=== PATIENT | female | born 1955 | race Caucasian/White ===

== ENCOUNTER 2018-10-24 10:00 | Inpatient (IN) | payer OTHER, MEDICARE ==
[2018-10-19 13:07] VITALS: BMI 42.5
[2018-10-24] MEDS ORDERED: TRANEXAMIC ACID 1000 MG/10 ML VIAL IVPUSH ONE (12:44)
[2018-10-24] MEDS ORDERED: VANCOMYCIN 1,000 MG in DEXTROSE 5%-WATER - 250 ML IVPB ONE (12:44)
[2018-10-24] MEDS ORDERED: CEFAZOLIN 2 GM in DEXTROSE 5%-WATER - 50 ML IVPB ONE (12:44)
[2018-10-24] MEDS ORDERED: SODIUM CHLORIDE 0.9% P/F 10 ML VIAL IJ ONE (14:58)
[2018-10-24] MEDS ORDERED: MIDAZOLAM HCL 2 MG/2 ML SINGLE DOSE VIAL ONE ×2 (14:58→17:51)
[2018-10-24] MEDS ORDERED: BUPIVACAINE LIPOSOME/PF (EXPAREL) 266 MG/20 ML VIAL ONE (14:58)
[2018-10-24] MEDS ORDERED: BUPIVACAINE HCL/PF 0.5% (5MG/ML) 10 ML VIAL ONE (16:37)
[2018-10-24] MEDS ORDERED: ACETAMINOPHEN 1000 MG/100 ML VIAL (NON FORMULARY) IVPB ONE (17:34)
[2018-10-24] MEDS ORDERED: oxyCODONE HCL 5 MG TABLET PO PRN (17:34)
[2018-10-24] MEDS ORDERED: ONDANSETRON 4 MG/2 ML VIAL IVPUSH PRN ×2 (17:34→21:54)
[2018-10-24] MEDS ORDERED: LACTATED RINGERS SOLUTION 1,000 ML IV SCH ×2 (17:45→22:00)
[2018-10-24] MEDS ORDERED: PROPOFOL 20 ML ONE ×11 (18:11→21:01)
[2018-10-24] MEDS ORDERED: ceFAZolin SODIUM 1 GM VIAL ONE ×2 (18:19→20:55)
[2018-10-24] MEDS ORDERED: VANCOMYCIN 1,000 MG VIAL (RESTRICTED TO ID ONLY) ONE (18:20)
[2018-10-24] MEDS ORDERED: PHENYLEPHRINE HCL 10 MG/1 ML SINGLE DOSE VIAL ONE (18:37)
[2018-10-24] MEDS ORDERED: TRANEXAMIC ACID 1000 MG/10 ML VIAL ONE ×2 (18:37→20:33)
[2018-10-24] MEDS ORDERED: BENZOIN/ALOE VERA/STORAX/TOLU 58 ML BOTTLE ONE (19:35)
[2018-10-24] MEDS ORDERED: ACETAMINOPHEN 500 MG TABLET (FP) PO PRN (21:10)
--- NOTE | 2018-10-24 21:12 | CONSULT ---
Consult Consult Specialty:: Hospitalist Referred by:: Dr Rona Reynolds Reason for Consultation:: Post Operative medical management - History of Present Illness Chief Complaint: Left total knee replacement History of Present Illness: 63 yrs old F morbidly obese H/O HTN, Depression anxiety, admitted for elective Left TKR for sever OA, Hospitalist consult is called post Operate medical management, at the time of examination c/o Left Hip Pain 11/19, denies any chest pain , SOB or Palpitation, no c/o nuasea, vomiting , abdominal distention , no H/O Dysuria or CVA tenderness. - History Source History Provided By: Patient - Past Medical History Cardio/Vascular: Yes: HTN - Past Surgical History Past Surgical History: Yes: Joint Replacement Additional Surgical History: C section - Alcohol/Substance Use Hx Alcohol Use: No - Smoking History Smoking history: Former smoker Have you smoked in the past 12 months: No If you are a former smoker, when did you quit?: 1980 - Social History Usual Living Arrangement: With Spouse Home Medications - Allergies Allergies/Adverse Reactions: Allergies Allergy/AdvReac Type Severity Reaction Status Date / Time No Known Allergies Allergy Verified 10/19/18 12:53 - Home Medications Home Medications: Ambulatory Orders Acetaminophen [Tylenol Extra Strength] 1,000 mg PO Q6H PRN 10/19/18 Amlodipine Besylate [Norvasc -] 5 mg PO DAILY 10/19/18 Buspirone HCl [Buspar -] 15 mg PO BID 10/19/18 Lisinopril 20 mg PO DAILY 10/19/18 Venlafaxine HCl ER [Effexor Xr -] 150 mg PO DAILY 10/19/18 Family Disease History - Family Disease History Family History: Unremarkable Review of Systems - Review of Systems Constitutional: denies: Chills, Diaphoresis, Fever, Lethargy Eyes: denies: Blind Spots, Blurred Vision, Double Vision HENT: denies: Difficult Swallowing, Ear Discharge, Ear Pain Neck: denies: Decreased ROM, Lumps, Pain on Movement Cardiovascular: denies: Chest Pain, Edema, Palpitations, Shortness of Breath Respiratory: denies: Cough, Exercise Intolerance, Hemoptysis, Orthopnea Gastrointestinal: denies: Abdominal Pain, Bloating, Constipation Genitourinary: denies: Burning, Discharge, Dysuria, Flank Pain Musculoskeletal: reports: Joint Pain (left Knee), Joint Swelling Neurological: denies: Change in LOC, Change in Speech, Confusion, Dizziness Hematology/Lymphatic: denies: Easily Bruised, Excessive Bleeding Psychiatric: reports: Anxiety, Depression. denies: Altered Sleep Pattern Physical Exam Vital Signs: Vital Signs Temperature 98.4 F 10/24/18 13:24 Pulse Rate 68 10/24/18 13:24 Respiratory Rate 18 10/24/18 13:24 Blood Pressure 153/79 10/24/18 13:24 O2 Sat by Pulse Oximetry (%) Elderly F not in distress c/o Left knee Pain HEENT: Mm moist, no anemia, PERRLA, EOMI NECK: No JVD, No Bruit CHEST: CTA B/L CVS: S1S2 R no m/g/r ABD: Obese, no distention, non tender BS + EXT: left knee s/p TKR, + distal pulses and sensation TRUST ADMINISTRATIVE ASSISTANT: AOX3 non focal Labs: 10/17/2018 CBC: not avialable CMP: Normal UA: Normal Coags: Normal Imaging - Results X-ray: Report Reviewed (CXR normal 10/17/2018) EKG: Report Reviewed Problem List - Problems (1) Total knee replacement status Assessment/Plan: For sever OA, c/o pain , pain control, post Op management as per ortho team. Code(s): Z96.659 - PRESENCE OF UNSPECIFIED ARTIFICIAL KNEE JOINT (2) HTN (hypertension) Assessment/Plan: mild elevation probably due to pain resume all home meds re evaluate after optimization of pain management. Code(s): I10 - ESSENTIAL (PRIMARY) HYPERTENSION (3) Anxiety Assessment/Plan: Known case of Anxiety and depression resume all home meds. Code(s): F41.9 - ANXIETY DISORDER, UNSPECIFIED (4) Morbid obesity Code(s): E66.01 - MORBID (SEVERE) OBESITY DUE TO EXCESS CALORIES Visit type - Emergency Visit Emergency Visit: No - New Patient This patient is new to me today: Yes Date on this admission: 10/24/18 - Critical Care Critical Care patient: No
[2018-10-24] MEDS ORDERED: MAGNESIUM HYDROX 2400MG/30ML ORAL SUSPENSION 30 ML CUP PO PRN (21:54)
[2018-10-24] MEDS ORDERED: MAG HYDROX/AL HYDROX/SIMETH 30 ML UNIT-DOSE CUP PO PRN (21:54)
--- NOTE | 2018-10-24 21:59 | PN ---
Progress Note (short form) - Note Progress Note: 63F s/p LEFT total knee replacement POD #0. -Pain control. -DVT PPx: -Chemical: ASA 81mg PO BID x 6 weeks post-op. -Mechanical: CAPRICE's, SCD's. -Incentive spirometry q15 min. -PT/OT/Rehab, OOB. -WBAT RLE. -Post-op Ancef x 2 doses. -f/u post-op TOV: 8 hours max. -f/u AM labs. -f/u drain output. -Diet as tolerated. -Care per medical hospitalist team. -Discharge planning: f/u [facility] [place] [facility] 11/01/2018; call for appointment . -Will follow. Rodolfo Rea MD (Orthopaedic Surgery).
[2018-10-24] MEDS ORDERED: ASPIRIN 325 MG TABLET PO SCH (22:00)
--- NOTE | 2018-10-24 22:01 | OP ---
Operative Note - Note: Operative Date: 10/24/18 Pre-Operative Diagnosis: Left knee DJD Operation: Left TKA Findings: Tourniquet Pressure: 350mmHg Tourniquet Time: 137 minutes Implants: Rosa Triathlon. Femur - 3. Tibia - 2. Poly - 16mm, TS. Patella - 27mm, symmetric Surgeon: Rodolfo Rea Cafe Server: Rupert Rea Anesthesiologist/[employer]: Charanjit Hooper Anesthesia: Spinal Specimens Removed: Bone, soft tissue Estimated Blood Loss (mls): 0 Drains & Tubes with Location: 1 x deep HemoVac Fluid Volume Replaced (mls): 1,000 (Crystalloid) Operative Report Dictated: Yes
[2018-10-24] MEDS: KETOROLAC TROMETHAMINE 15 MG/ML VIAL IVPUSH PRN (22:10)
[2018-10-24] MEDS: oxyCODONE HCL 10 MG SUSTAINED ACTING TABLET PO SCH (23:10)
[2018-10-25] MEDS: SENNOSIDES/DOCUSATE COMBO (SENNA PLUS) TABLET (UD) PO SCH ×3 (00:04→21:40)
[2018-10-25] MEDS: busPIRone HCL 5 MG TABLET PO SCH ×3 (00:04→21:39)
[2018-10-25] MEDS: oxyCODONE HCL 5 MG TABLET PO PRN ×6 (00:13→20:28)
[2018-10-25] MEDS: ASPIRIN 81 MG CHEWABLE TABLETS PO SCH ×3 (00:34→21:40)
[2018-10-25] MEDS: CEFAZOLIN 1 GM/D5W 1 GM/50 ML BAG IVPB SCH ×2 (04:10→12:50)
--- NOTE | 2018-10-25 06:50 | OP ---
DATE OF OPERATION: 10/24/2018 SURGEON: Rodolfo Rea MD ASSISTANTS: Rupert Rea MD, BOSSMAN Aparicio PREOPERATIVE DIAGNOSIS: Left tricompartmental osteoarthritis, knee. POSTOPERATIVE DIAGNOSIS: Left tricompartmental osteoarthritis, knee. OPERATION PERFORMED: Posterior stabilized total knee arthroplasty cemented, Rosa. Subvastus approach utilized. ANESTHESIA: Spinal anesthesia with peripheral nerve block and conscious sedation. ANTIBIOTICS GIVEN: Kefzol 2 g, vancomycin 1 g, and Kefzol 1 g given at the end of the procedure. OPERATION IN DETAIL: The patient was correctly identified and brought in the operating room. The left lower extremity was prepped and draped in the routine manner with Betadine scrub solution, wiped with alcohol, DuraPrep was applied, free drape applied. Midline incision was utilized. Dissection was taken on the medial aspect of the proximal tibia, skirting around to the medial side 1 inch distal along the border of vastus medialis. The entire vastus medialis was dissected free of its epimysium superficially right down to the linear aspect and the medial aspect to the adductor hiatus for the exiting femoral artery. The patella was slid laterally and held out of harms way. Two towel clips at the dissection enabled full exposure of the knee. The Hoffa fat pad was excised. The transection of the cruciate ligaments performed. Once this had been performed, the tibia was subluxed laterally. The tibial cut was made with extramedullary jig alignment system of [place]. A 3- mm cut of bone was resected perpendicular to the shaft of the tibia. The femoral cut was made with the appropriate jig system. The joint line was approximated 2 mm. The jig cuts were made with the appropriate jig device. This brought about easy fitting of the femoral component. The femoral component measured size 3 for a Triathlon femur base femur, and the universal baseplate for the tibia measured size 2. The patella was cut using an oscillating saw in line with the quadricepts tendon and patellar ligament to receive a size 27-mm polyethylene button. The jig cuts were made revealing normal alignment of the limb. A flexion gap extension gap was even at 16 mm. Once all the jig cuts had been made, cementing using one stage tibia followed by femur followed by patella, all extraneous cement was removed once it had cured. The size 16-mm TS component polyethylene was inserted. The wounds were thoroughly lavaged. The closure was as follows: Fascia along the retinacular tissues 1 Vicryl, subcutaneous 1 and 2-0 Vicryl, skin Steri-Strips. A light bandage applied. Operation went well. No complications. Kefzol 1 g given at the end of the procedure. Postoperative x-rays were taken. MD MITCH Castro/[id number] MTDD
[2018-10-25 08:36] LABS: BASO % 0.5 % (0-2.0); EOS % 2.8 % (0-4.5); HEMATOCRIT 34.2 % (32.4-45.2); HEMOGLOBIN 11.2 GM/dl (10.7-15.3); LYMPH % 12.3 % (8-40); MCH 30.6 pg (25.7-33.7); MCHC 32.8 g/dl (32.0-36.0); MEAN CELL VOLUME 93.4 fl (80-96); MEAN PLT VOLUME 10.2 fl (7.5-11.1); MONO % 7.9 % (3.8-10.2); NEUT % 76.5 % (42.8-82.8); PLATELET COUNT 198 K/MM3 (134-434); RBC 3.66 M/mm3 (3.60-5.2); WHITE BLOOD COUNT 9.7 K/mm3 (4.0-10.8)
[2018-10-25 08:42] LABS: CALCIUM 8.7 mg/dl (8.5-10); CREATININE 0.8 mg/dl (0.55-1.3); POTASSIUM 4.3 mmol/L (3.5-5.1)
[2018-10-25] MEDS: amLODIPine BESYLATE 5 MG TABLET (FP) PO SCH (09:40)
[2018-10-25] MEDS: VENLAFAXINE HCL 75 MG E.R. CAPSULES (FP) PO SCH (09:40)
[2018-10-25] MEDS: PANTOPRAZOLE 40 MG TABLET (FP) PO SCH (09:40)
[2018-10-25] MEDS: LISINOPRIL 20 MG TABLET (FP) PO SCH (09:41)
[2018-10-25] MEDS: oxyCODONE HCL 10 MG SUSTAINED ACTING TABLET PO SCH ×2 (09:41→21:40)
[2018-10-25] MEDS ORDERED: VENLAFAXINE HCL 150 MG E.R. CAPSULE PO SCH (10:00)
--- NOTE | 2018-10-25 10:22 | PN ---
Progress Note (short form) - Note Progress Note: pod#1 pt with complaints of pain this am. She is oob to chair today. NO nausea or emesis. No CP or SOB. Vital Signs Period Temp Pulse Resp BP Sys/Sheth Pulse Ox Last 24 Hr 97.6 F-98.4 F 57-74 14-18 100-153/42-88 100-100 LAW: non-bloody, 60 ml GEN: A&0x3, NAD CV: RRR Lungs: CTA b/ anteriorly Left leg: dressing c/d/i. LE: rayo/scds in place. 5/5 dorsi/plantar/flexion b/l. Able to raise left quad passively without difficulty. No calf tenderness or swelling noted b/l. CBC, BMP 05/16/19 07:10 05/16/19 07:10 A/p: 63 yo female s/p L total knee replacement, POD#1 diet as tolerated dvt ppx with rayo/scds/ambulate/PT/aspirin 81 mg BID pain managment with oral narcotics, resummed gabapentin 300 mg TID D/w Dr. Rea
[2018-10-25] MEDS: ACETAMINOPHEN 650 MG/20.3 ML ORAL SOLUTION (CUPS) PO SCH ×3 (11:49→22:06)
[2018-10-25] MEDS ORDERED: GABAPENTIN 300 MG CAPSULE (FP) PO SCH (14:00)
--- NOTE | 2018-10-25 16:46 | PN ---
Progress Note (short form) - Note Progress Note: 63F POD1 s/p L TKR under spinal anesthetic with PNBs. Pt states that pain is well controlled and reports no anesthetic complications. AVSS. Continue current regimen.
[2018-10-25] MEDS: GABAPENTIN 300 MG CAPSULE (FP) PO SCH (21:38)
[2018-10-26] MEDS: oxyCODONE HCL 5 MG TABLET PO PRN ×4 (01:21→18:04)
[2018-10-26] MEDS: ACETAMINOPHEN 650 MG/20.3 ML ORAL SOLUTION (CUPS) PO SCH (06:20)
[2018-10-26] MEDS: GABAPENTIN 300 MG CAPSULE (FP) PO SCH ×3 (06:21→21:38)
[2018-10-26] MEDS ORDERED: SUMAtriptan SUCCINATE 50 MG TABLET PO ONE (08:00)
[2018-10-26 08:08] LABS: HEMATOCRIT 32.3 % (32.4-45.2); HEMOGLOBIN 10.6 GM/dl (10.7-15.3); MCH 30.7 pg (25.7-33.7); MCHC 32.8 g/dl (32.0-36.0); MEAN CELL VOLUME 93.6 fl (80-96); MEAN PLT VOLUME 10.3 fl (7.5-11.1); PLATELET COUNT 195 K/MM3 (134-434); RBC 3.45 M/mm3 (3.60-5.2); RDW 15.7 % (11.6-15.6); WHITE BLOOD COUNT 10.6 K/mm3 (4.0-10.8)
--- NOTE | 2018-10-26 09:06 | PN ---
Progress Note (short form) - Note Progress Note: POD#2 Pt states that she has a migraine this am. Slight nausea. OOB and ambulating, complains of pain where her drain is. Vital Signs Period Temp Pulse Resp BP Sys/Sheth Pulse Ox Last 24 Hr 98.2 F-99.6 F 75-85 18-18 91-118/45-67 93-95 LAW: blood tinged 190 outpt since yesterday GEN: A&0x3 NAD CV: RRR Lungs: CTA b/l Left knee: drain removed this am with the tip intact. Surgical dressing c/d/i. Reapplied SURY wrap. No calf tenderness or swelling noted b/l. Replaced CAPRICE stocking with larger pair. CBC, BMP 10/26/ 07:26 10/25/18 07:10 A/P: 63 yo female s/p Left knee replacement Drain removed today Continue PT/plan for dishcarge to [place] versus Home with services today Diet as tolerated Continue aspirin 81mg BID D/w Dr. Rea
[2018-10-26] MEDS: ASPIRIN 81 MG CHEWABLE TABLETS PO SCH ×2 (09:52→21:38)
[2018-10-26] MEDS: SENNOSIDES/DOCUSATE COMBO (SENNA PLUS) TABLET (UD) PO SCH ×2 (09:52→21:37)
[2018-10-26] MEDS: busPIRone HCL 5 MG TABLET PO SCH ×2 (09:52→21:37)
[2018-10-26] MEDS: VENLAFAXINE HCL 75 MG E.R. CAPSULES (FP) PO SCH (09:52)
[2018-10-26] MEDS: PANTOPRAZOLE 40 MG TABLET (FP) PO SCH (09:53)
[2018-10-26] MEDS: LISINOPRIL 20 MG TABLET (FP) PO SCH (09:53)
[2018-10-26] MEDS: amLODIPine BESYLATE 5 MG TABLET (FP) PO SCH (09:53)
[2018-10-26] MEDS: oxyCODONE HCL 10 MG SUSTAINED ACTING TABLET PO SCH ×3 (09:53→21:38)
[2018-10-26] MEDS: KETOROLAC TROMETHAMINE 15 MG/ML VIAL IVPUSH PRN (13:43)
--- NOTE | 2018-10-26 15:33 | PATH ---
Surgical Pathology Report Patient Name: ALLISON ANGUIANO Med. Rec. #: [id number] /Age/Gender: 1955 (Age: 63) / F Account: [id number] Location: [facility] MED-SURG Taken: 10/24/2018 Received: 10/24/2018 Reported: 10/26/2018 Physicians: Rodolfo Rea M.D. Specimen(s) Received LEFT KNEE BONE Clinical History Primary osteoarthritis, left knee Final Diagnosis KNEE BONE, LEFT, TOTAL KNEE REPLACEMENT: DEGENERATIVE JOINT DISEASE. Electronically Signed Katy Blair M.D. Gross Description Received in formalin, labeled "left knee bone" is a 12.5 x 10.5 x 2.5 cm aggregate of cartilage-capped bone and fibroadipose tissue. The articular/condylar surfaces appear granular and show areas of eburnation. Public Records Researcher sections are submitted in one cassette after decalcification.
--- NOTE | 2018-10-26 18:02 | PN ---
Physical Exam: SUBJECTIVE: Patient seen and examined oob to chair. OBJECTIVE: Vital Signs Period Temp Pulse Resp BP Sys/Sheth Pulse Ox Last 24 Hr 98.2 F-98.7 F 75-85 18-18 105-118/45-67 95-96 GENERAL: The patient is awake, alert, and fully oriented, in no acute distress. LUNGS: Breath sounds equal, clear to auscultation bilaterally, no wheezes, no crackles, no accessory muscle use. HEART: Regular rate and rhythm, S1, S2 ABDOMEN: Soft, nontender, nondistended LLE: Knee immobilizer in placem 2+ DP pulses, foot warm, well-perfused NEUROLOGICAL: Cranial nerves II through XII grossly intact. Normal speech, gait not observed. Laboratory Results - last 24 hr 10/26/18 07:26 WBC 10.6 RBC 3.45 L Hgb 10.6 L Hct 32.3 L MCV 93.6 MCH 30.7 MCHC 32.8 RDW 15.7 H Plt Count 195 MPV 10.3 Active Medications Generic Name Dose Route Start Last Admin Trade Name Freq PRN Reason Stop Dose Admin Al Hydroxide/Mg Hydroxide 30 ml 10/24/18 21:54 Mylanta Oral Suspension - PO Q4H PRN DYSPEPSIA Amlodipine Besylate 5 mg 10/25/18 10:00 10/26/18 09:53 Norvasc - PO 5 mg DAILY ZOHREH Administration Aspirin 81 mg 10/24/18 23:45 10/26/18 09:52 Asa - PO 81 mg BID ZOHREH Administration Buspirone HCl 15 mg 10/24/18 22:00 10/26/18 09:52 Buspar - PO 15 mg BID ZOHREH Administration Gabapentin 300 mg 10/25/18 22:00 10/26/18 13:43 Neurontin - PO 300 mg TID ZOHREH Administration Ketorolac Tromethamine 15 mg 10/24/18 22:07 10/26/18 13:43 Toradol Injection - IVPUSH 15 mg Q6H PRN Administration PAIN LEVEL 6-10 Lisinopril 20 mg 10/25/18 10:00 10/26/18 09:53 Prinivil PO 20 mg DAILY ZOHREH Administration Magnesium Hydroxide 30 ml 10/24/18 21:54 Milk Of Magnesia - PO PRN PRN CONSTIPATION Ondansetron HCl 4 mg 10/24/18 17:34 Zofran Injection IVPUSH Q6H PRN NAUSEA AND/OR VOMITING Ondansetron HCl 4 mg 10/24/18 21:54 10/24/18 22:00 Zofran Injection IVPUSH 4 mg Q6H PRN Administration NAUSEA Oxycodone HCl 5 mg 10/24/18 17:34 Roxicodone - PO Q3H PRN PAIN LEVEL 1-5 Oxycodone HCl 10 mg 10/24/18 17:34 10/26/18 12:37 Roxicodone - PO 10 mg Q3H PRN Administration PAIN LEVEL 6-10 Oxycodone HCl 10 mg 10/24/18 22:00 10/26/18 12:41 Oxycontin - PO 10/27/18 17:35 Not Given BID ZOHREH Pantoprazole Sodium 40 mg 10/25/18 10:00 10/26/18 09:53 Protonix - PO 40 mg DAILY ZOHREH Administration Senna/Docusate Sodium 1 tablet 10/24/18 22:00 10/26/18 09:52 Pericolace - PO 1 tablet BID ZOHREH Administration Venlafaxine HCl 150 mg 10/25/18 10:00 10/26/18 09:52 Effexor Xr - PO 150 mg DAILY ZOHREH Administration ASSESSMENT/PLAN 63 year-old female with a PMH significant for HTN, depression/anxiety, and OA s/ p left total knee arthroplasty on 10/24/[address] Rodolfo Rea. Left total knee arthroplasty --POD #2 --perioperative antibiotics per surgery --pain management per surgery --ASA 81mg BID --protonix --bowel regimen --incentive spirometry Hypertension --BP stable --continue amlodipine, lisinopril Depression/anxiety --continue Effexor, Buspar FEN Fluids: PO intake adequate Electrolytes: replete as indicated Nutrition: regular diet DVT prophylaxis: OOB, ambulation, SCDs, TEDs, ASA 81mg BID Physical therapy Dispo: continues to require inpatient care. Full code. Visit type - Emergency Visit Emergency Visit: No - New Patient This patient is new to me today: No - Critical Care Critical Care patient: No
[2018-10-27] MEDS: oxyCODONE HCL 5 MG TABLET PO PRN ×2 (01:04→07:03)
[2018-10-27] MEDS: KETOROLAC TROMETHAMINE 15 MG/ML VIAL IVPUSH PRN (03:33)
[2018-10-27] MEDS: GABAPENTIN 300 MG CAPSULE (FP) PO SCH (07:03)
--- NOTE | 2018-10-27 09:45 | PN ---
Progress Note (short form) - Note Progress Note: POD#3 Doing remarkably well. Mobilizing Bandage dry No NVD PLAN D/c to rehab see in office 10 days DVTprophylaxis
[2018-10-27] MEDS: LISINOPRIL 20 MG TABLET (FP) PO SCH (09:56)
[2018-10-27] MEDS: oxyCODONE HCL 10 MG SUSTAINED ACTING TABLET PO SCH (09:57)
[2018-10-27] MEDS: busPIRone HCL 5 MG TABLET PO SCH (09:57)
[2018-10-27] MEDS: VENLAFAXINE HCL 75 MG E.R. CAPSULES (FP) PO SCH (09:57)
[2018-10-27] MEDS: amLODIPine BESYLATE 5 MG TABLET (FP) PO SCH (09:58)
[2018-10-27] MEDS: ASPIRIN 81 MG CHEWABLE TABLETS PO SCH (09:58)
[2018-10-27] MEDS: SENNOSIDES/DOCUSATE COMBO (SENNA PLUS) TABLET (UD) PO SCH (10:00)
[2018-10-27] MEDS: PANTOPRAZOLE 40 MG TABLET (FP) PO SCH (12:15)
[2018-10-27 13:21] VITALS: BP 99/49; PULSE 80; TEMP 99
--- NOTE | 2018-10-29 15:36 | PN ---
Physical Exam: SUBJECTIVE: Patient seen and examined oob to chair. OBJECTIVE: Vital Signs Period Temp Pulse Resp BP Sys/Sheth Pulse Ox Last 24 Hr 98.2 F-98.7 F 75-85 18-18 105-118/45-67 95-96 GENERAL: The patient is awake, alert, and fully oriented, in no acute distress. LUNGS: Breath sounds equal, clear to auscultation bilaterally, no wheezes, no crackles, no accessory muscle use. HEART: Regular rate and rhythm, S1, S2 ABDOMEN: Soft, nontender, nondistended LLE: Knee immobilizer in placem 2+ DP pulses, foot warm, well-perfused NEUROLOGICAL: Cranial nerves II through XII grossly intact. Normal speech, gait not observed. Laboratory Results - last 24 hr 10/26/18 07:26 WBC 10.6 RBC 3.45 L Hgb 10.6 L Hct 32.3 L MCV 93.6 MCH 30.7 MCHC 32.8 RDW 15.7 H Plt Count 195 MPV 10.3 Active Medications Generic Name Dose Route Start Trade Name Freq PRN Reason Stop Al Hydroxide/Mg Hydroxide 30 ml 10/24/18 21:54 Mylanta Oral Suspension - PO Q4H PRN DYSPEPSIA Amlodipine Besylate 5 mg 10/25/18 10:00 Norvasc - PO DAILY [facility] Aspirin 81 mg 10/24/18 23:45 Asa - PO BID [facility] Buspirone HCl 15 mg 10/24/18 22:00 Buspar - PO BID [facility] Gabapentin 300 mg 10/25/18 22:00 Neurontin - PO TID [facility] Ketorolac Tromethamine 15 mg 10/24/18 22:07 Toradol Injection - IVPUSH Q6H PRN PAIN LEVEL 6-10 Lisinopril 20 mg 10/25/18 10:00 Prinivil PO DAILY [facility] Magnesium Hydroxide 30 ml 10/24/18 21:54 Milk Of Magnesia - PO PRN PRN CONSTIPATION Ondansetron HCl 4 mg 10/24/18 17:34 Zofran Injection IVPUSH Q6H PRN NAUSEA AND/OR VOMITING Ondansetron HCl 4 mg 10/24/18 21:54 Zofran Injection IVPUSH Q6H PRN NAUSEA Oxycodone HCl 5 mg 10/24/18 17:34 Roxicodone - PO Q3H PRN PAIN LEVEL 1-5 Oxycodone HCl 10 mg 10/24/18 17:34 Roxicodone - PO Q3H PRN PAIN LEVEL 6-10 Oxycodone HCl 10 mg 10/24/18 22:00 Oxycontin - PO 10/27/18 17:35 BID [facility] Pantoprazole Sodium 40 mg 10/25/18 10:00 Protonix - PO DAILY [facility] Senna/Docusate Sodium 1 tablet 10/24/18 22:00 Pericolace - PO BID [facility] Venlafaxine HCl 150 mg 10/25/18 10:00 Effexor Xr - PO DAILY [facility] ASSESSMENT/PLAN 63 year-old female with a PMH significant for HTN, depression/anxiety, and OA s/ p left total knee arthroplasty on 10/24/[address] Rodolfo Rea. Left total knee arthroplasty --POD #1 --perioperative antibiotics per surgery --pain management per surgery --ASA 81mg BID --protonix --bowel regimen --incentive spirometry Hypertension --BP stable --continue amlodipine, lisinopril Depression/anxiety --continue Effexor, Buspar FEN Fluids: PO intake adequate Electrolytes: replete as indicated Nutrition: regular diet DVT prophylaxis: OOB, ambulation, SCDs, TEDs, ASA 81mg BID Physical therapy Dispo: continues to require inpatient care. Full code. Visit type - Emergency Visit Emergency Visit: No - New Patient This patient is new to me today: Yes Date on this admission: 10/29/18 - Critical Care Critical Care patient: No
== END 2018-10-27 11:00 | DRG 470 ==
LOC: FM/S 12:19
PROVIDERS: ADMIT Orthopaedic Surgery Orthopaedic Surgery of the Spine; ATTEND Orthopaedic Surgery Orthopaedic Surgery of the Spine
PROC: 0SRD0J9 Replacement of Left Knee Joint with Synthetic Substitute, Cemented, Open Approach (ICD-10-PCS; principal; 2018-10-24 18:56)
DX: M17.12 Unilateral primary osteoarthritis, left knee (principal); Z68.41 Body mass index [BMI] 40.0-44.9, adult; E66.01 Morbid (severe) obesity due to excess calories; I10 Essential (primary) hypertension; F41.9 Anxiety disorder, unspecified; Z87.891 Personal history of nicotine dependence; F32.9 Major depressive disorder, single episode, unspecified
CPT/HCPCS: 36415; 73560-TC-LT-FY; 80048; 85025; 85027; 88304-TC; 88311-TC; 97116-GP; 97163-GP; J0131

== ENCOUNTER 2018-11-11 11:30 | Inpatient (IN) | payer OTHER, MEDICARE ==
--- NOTE | 2018-11-12 01:22 | HP ---
CHIEF COMPLAINT: L knee repair PCP: Dr. Guillermo Bruner HISTORY OF PRESENT ILLNESS: 63 year-old female with a PMH significant for HTN, depression/anxiety, and OA s/ p left total knee arthroplasty on 10/24/[address] Rodolfo Rae, was transferred from [facility] by the request of Dr. Rea for evaluation of her L Knee pain. Patient noticed drainage, redness, and erythema from her L knee at the site [place] She admits to persistent pain since surgery. She said she had a follow up on November 01 but she showed no signs of infection. Dr. Rea was contacted today and requested for possible surgical intervention in the morning. Labs, cultures and imaging were taken at [facility]. She was given Vanc, Zosyn. She denies symptoms including fevers, chills, nausea, vomiting, chills, chest pain, headache, dizziness, sob, urinary changes. Recent Travel: denies PAST MEDICAL HISTORY: per HPI PAST SURGICAL HISTORY: arthoplasty 10/24 Social History: Smoking: denies. said she quit 40 years ago Alcohol: denies Drugs: denies Allergies No Known Allergies Allergy (Verified 10/19/18 12:53) HOME MEDICATIONS: Home Medications Medication Instructions Recorded Amlodipine Besylate [Norvasc -] 5 mg PO DAILY 10/19/18 Buspirone HCl [Buspar -] 15 mg PO BID 10/19/18 Lisinopril 20 mg PO DAILY 10/19/18 Venlafaxine HCl ER [Effexor Xr -] 150 mg PO DAILY 10/19/18 Gabapentin 300 mg PO TID 10/25/18 Acetaminophen [Tylenol Extra 1,000 mg PO Q8H PRN #0 tab 10/26/18 Strength] Aspirin [ASA -] 81 mg PO BID #90 tab.chew 10/26/18 Docusate Sodium [Colace -] 100 mg PO BID #28 capsule 10/26/18 Gabapentin [Neurontin -] 300 mg PO TID capsule 10/26/18 REVIEW OF SYSTEMS CONSTITUTIONAL: Absent: fever, chills, diaphoresis, generalized weakness, malaise, loss of appetite, weight change HEENT: Absent: rhinorrhea, nasal congestion, throat pain, throat swelling, difficulty swallowing, mouth swelling, ear pain, eye pain, visual changes CARDIOVASCULAR: Absent: chest pain, syncope, palpitations, irregular heart rate, lightheadedness , peripheral edema RESPIRATORY: Absent: cough, shortness of breath, dyspnea with exertion, orthopnea, wheezing, stridor, hemoptysis GASTROINTESTINAL: Absent: abdominal pain, abdominal distension, nausea, vomiting, diarrhea, constipation, melena, hematochezia GENITOURINARY: Absent: dysuria, frequency, urgency, hesitancy, hematuria, flank pain, genital pain MUSCULOSKELETAL: Absent: myalgia, arthralgia, joint swelling, back pain, neck pain NEUROLOGIC: Absent: headache, focal weakness or paresthesias, dizziness, unsteady gait, seizure, mental status changes, bladder or bowel incontinence PSYCHIATRIC: Absent: anxiety, depression, suicidal or homicidal ideation, hallucinations. PHYSICAL EXAMINATION GENERAL: Awake, alert, and fully oriented, in no acute distress. HEAD: Normal with no signs of trauma. EYES: Pupils equal, round and reactive to light, extraocular movements intact, sclera anicteric, conjunctiva clear. EARS, NOSE, THROAT: oropharynx clear without exudates. Moist mucous membranes. NECK: supple without lymphadenopathy, JVD, or masses. LUNGS: Breath sounds equal, clear to auscultation bilaterally. No wheezes, and no crackles. HEART: Regular rate and rhythm, normal S1 and S2 without murmur, rub or gallop. ABDOMEN: Soft, nontender, not distended, normoactive bowel sounds, no guarding, no rebound, no masses. No hepatomegaly or splenomegaly. MUSCULOSKELETAL: Normal range of motion at all joints. No bony deformities or tenderness. LOWER EXTREMITIES: 2+ pulses, L Knee erythematous, swollen, warm to touch, with serosanguinous and purulent discharge @ incision site. NEUROLOGICAL: Cranial nerves II-XII intact. Normal speech. ASSESSMENT/PLAN: 63 year-old female with a PMH significant for HTN, depression/anxiety, and OA s/ p left total knee arthroplasty on 10/24/[address] Rodolfo Rea, was transferred from [facility] by the request of Dr. Rea for evaluation of her L Knee pain #Septic Joint L Knee -2/2 surgical wound infection from L TKR -s/p left total knee arthroplasty on 10/24/18 -Labs in AM: CBC, CMP -Morphine 2mg q4h PRN for pain control -Cont. Zosyn -Consult ID -FU cultures from [facility] -Dr. Rea on board for possible surgical intervention. -NPO #HTN -Cont. Home meds -Norvasc 5mg, Lisinopril 10mg #Depression/Anxiety -cont. Effexor 150mg daily -Cont. Buspar 150mg daily #FEN -no IV fluids -monitor electrolytes -NPO #Dvt ppx -hep sq dispo: Med-surge Visit type - Emergency Visit Emergency Visit: Yes ED Registration Date: 11/11/18 Care time: The patient presented to the Emergency Department on the above date and was hospitalized for further evaluation of their emergent condition. - New Patient This patient is new to me today: Yes Date on this admission: 11/13/18 - Critical Care Critical Care patient: No
[2018-11-12] MEDS ORDERED: MORPHINE SULFATE 2 MG/ML VIAL ONE (01:36)
--- NOTE | 2018-11-12 01:40 | PN ---
Teaching Attending Note Name of Resident: Missael James ATTENDING PHYSICIAN STATEMENT I saw and evaluated the patient. I reviewed the resident's note and discussed the case with the resident. I agree with the resident's findings and plan as documented. SUBJECTIVE: This is a 63 year old woman with a history of HTN, depression, anxiety, DJD who underwent left total knee arthroscopy with Dr. Rea on October 24 at [place]. She reports redness and pain of the left knee since surgery. She saw Dr. Rea on November 01. On November 09, she went walking with a brace on her left leg. When she removed the brace, she reports that the scab came off and pus started draining. She denies fever, chills. Today she went to the ED at [facility]. She says labs, x-rays, and cultures were done, Dr. Rea was contacted and he asked for her to be transferred here for surgery. OBJECTIVE: HEART: S1S2, RRR LUNGS: Clear ABDOMEN: Obese, soft, non-tender, non-distended, normal BS EXTREMITIES: Left knee swollen and tender, (+) erythema of incision with purulent drainage Home Medications Medication Instructions Recorded Amlodipine Besylate [Norvasc -] 5 mg PO DAILY 10/19/18 Buspirone HCl [Buspar -] 15 mg PO BID 10/19/18 Lisinopril 20 mg PO DAILY 10/19/18 Venlafaxine HCl ER [Effexor Xr -] 150 mg PO DAILY 10/19/18 Gabapentin 300 mg PO TID 10/25/18 Acetaminophen [Tylenol Extra 1,000 mg PO Q8H PRN #0 tab 10/26/18 Strength] Aspirin [ASA -] 81 mg PO BID #90 tab.chew 10/26/18 Docusate Sodium [Colace -] 100 mg PO BID #28 capsule 10/26/18 Gabapentin [Neurontin -] 300 mg PO TID capsule 10/26/18 ASSESSMENT AND PLAN: This is a 63 year old woman with a history of HTN, depression, anxiety, DJD, s/ p left total knee arthroscopy on October 24 who presented to the ED at [facility] for left knee pain, redness, and swelling with pus draining from the incision. 1. Surgical incision infection, left knee - Possible prosthetic joint infection - Zosyn, vancomycin given in [facility] ED - will continue - Ortho, ID consults 2. HTN - Continue Norvasc, lisinopril 3. Depression with anxiety - Continue Effexor XR, BuSpar 4. DJD, left knee - s/p left TKA 10/24 - Neurontin, oxycodone as needed for pain control
[2018-11-12] MEDS: MORPHINE SULFATE 2 MG/ML VIAL IVPUSH PRN ×4 (01:45→21:14)
[2018-11-12] MEDS ORDERED: DEXTROSE 5%-WATER - 50 ML IVPB ONE ×3 (03:48→17:30)
[2018-11-12] MEDS ORDERED: PIPERACILLIN/TAZOBACTAM 3.375 GM VIAL IVPB ONE ×3 (03:48→17:30)
[2018-11-12] MEDS: PIPERACILLIN/TAZOB 3.375 GM 3.375 GM in DEXTROSE 5%-WATER - 50 ML IVPB SCH ×3 (03:49→17:40)
[2018-11-12] MEDS: oxyCODONE HCL 5 MG TABLET PO PRN ×3 (03:51→22:42)
[2018-11-12 04:16] VITALS: BMI 43.2
[2018-11-12] MEDS: HEPARIN NA (PORCINE) 5,000 UNITS/ML 1ML VIAL SQ SCH ×3 (06:07→21:10)
[2018-11-12] MEDS: GABAPENTIN 300 MG CAPSULE (FP) PO SCH ×3 (06:09→21:12)
[2018-11-12 06:32] LABS: BASO % 1.4 % (0-2.0); EOS % 7.9 % (0-4.5); HEMATOCRIT 33.5 % (32.4-45.2); LYMPH % 25.4 % (8-40); MCH 30.7 pg (25.7-33.7); MCHC 32.8 g/dl (32.0-36.0); MEAN CELL VOLUME 93.6 fl (80-96); MEAN PLT VOLUME 8.9 fl (7.5-11.1); MONO % 6.6 % (3.8-10.2); NEUT % 58.7 % (42.8-82.8); PLATELET COUNT 354 K/MM3 (134-434); RBC 3.58 M/mm3 (3.60-5.2); RDW 16.2 % (11.6-15.6); WHITE BLOOD COUNT 7.5 K/mm3 (4.0-10.0)
[2018-11-12 06:54] LABS: INR 1.02 (0.83-1.09)
[2018-11-12 07:00] LABS: BILIRUBIN,TOTAL 0.4 mg/dL (0.2-1); CALCIUM 8.4 mg/dL (8.5-10.1); CREATININE 0.8 mg/dL (0.55-1.3); MAGNESIUM 2.1 mg/dL (1.8-2.4); PHOSPHOROUS 3.4 mg/dL (2.5-4.9); POTASSIUM 4.1 mmol/L (3.5-5.1); TOT PROT 5.3 g/dl (6.4-8.2)
--- NOTE | 2018-11-12 08:41 | PN ---
Progress Note (short form) - Note Progress Note: 63F s/p LEFT total knee replacement POD #19 p/w surgical wound dehiscence. -NPO, IVF. -OR today for I&D left knee wound and closure. Rodolfo Rea MD (Orthopaedic Surgery).
[2018-11-12 09:04] LABS: URINE APPEARANCE CLEAR; URINE BILIRUBIN NEGATIVE (NEGATIVE); URINE COLOR YELLOW; URINE GLUCOSE (UA) NEGATIVE (NEGATIVE); URINE KETONE NEGATIVE (NEGATIVE); URINE LEUK ESTERASE NEGATIVE (NEGATIVE); URINE NITRITE NEGATIVE (NEGATIVE); URINE PROTEIN NEGATIVE (NEGATIVE); URINE UROBILINOGEN 0.2 mg/dL (0.2-1.0)
[2018-11-12] MEDS ORDERED: PT OWN MED DRAWER 7, Y5N ONE ×3 (09:16→20:45)
[2018-11-12] MEDS: LISINOPRIL 10 MG TABLET (FP) PO SCH (09:19)
[2018-11-12] MEDS: DOCUSATE SODIUM 100 MG CAPSULE (FP) PO SCH ×2 (09:19→21:10)
[2018-11-12] MEDS: amLODIPine BESYLATE 5 MG TABLET (FP) PO SCH (09:19)
--- NOTE | 2018-11-12 09:39 | PN ---
Progress Note, Physician Chief Complaint: left knee pain History of Present Illness: Patient is a 63 year-old female with a past medical history of hypertension, depression/anxiety, and OA s/p left total knee arthroplasty on 10/24/[address] Rodolfo Rea. Patient was transferred from [facility] by the request of Dr. Rea for evaluation of her left knee pain. Patient noticed drainage, redness, and erythema from her left knee at the site of surgery and here for surgical intervention. Labs, cultures and imaging were taken at [facility]. She was given Vanc, Zosyn. She denies symptoms including fevers, chills, nausea, vomiting, chills, chest pain, headache, dizziness, sob, urinary changes. Patient for a left knee washout today. - Current Medication List Current Medications: Active Medications Amlodipine Besylate (Norvasc -) 5 mg PO DAILY [facility] Last Admin: 11/12/18 09:19 Dose: 5 mg Buspirone HCl 10 mg/ Buspirone (HCl 5 mg) 15 mg PO BID [facility] Docusate Sodium (Colace -) 100 mg PO BID [facility] Last Admin: 11/12/18 09:19 Dose: 100 mg Gabapentin (Neurontin -) 300 mg PO TID [facility] Last Admin: 11/12/18 06:09 Dose: 300 mg Heparin Sodium (Porcine) (Heparin -) 5,000 unit SQ TID [facility] Last Admin: 11/12/18 06:07 Dose: Not Given Piperacillin Sod/Tazobactam (Sod 3.375 gm/ Dextrose) 50 mls @ 100 mls/hr IVPB Q8H-IV [facility]; Protocol Stop: 11/12/18 18:29 Last Admin: 11/12/18 09:19 Dose: 100 mls/hr Piperacillin Sod/Tazobactam (Sod 3.375 gm/ Dextrose) 50 mls @ 100 mls/hr IVPB Q8H-IV [facility]; Protocol Lisinopril (Prinivil) 10 mg PO DAILY [facility] Last Admin: 11/12/18 09:19 Dose: 10 mg Morphine Sulfate (Morphine Sulfate) 2 mg IVPUSH Q4H PRN PRN Reason: PAIN LEVEL 6-10 Last Admin: 11/12/18 06:07 Dose: 2 mg Oxycodone HCl (Roxicodone -) 10 mg PO Q6H PRN PRN Reason: PAIN LEVEL 4 - 10 Last Admin: 11/12/18 03:51 Dose: 10 mg Venlafaxine HCl (Effexor Xr -) 150 mg PO DAILY@1200 [facility] - Objective Vital Signs: Vital Signs Temperature 98.5 F 11/12/18 01:22 Pulse Rate 64 11/12/18 01:22 Respiratory Rate 20 11/12/18 01:22 Blood Pressure 132/70 11/12/18 01:22 O2 Sat by Pulse Oximetry (%) 95 11/12/18 01:22 Constitutional: Yes: Well Nourished, No Distress, Calm Eyes: Yes: WNL HENT: Yes: WNL Neck: Yes: Supple Cardiovascular: Yes: Regular Rate and Rhythm Respiratory: Yes: WNL, CTA Bilaterally Gastrointestinal: Yes: Normal Bowel Sounds ...Rectal Exam: Yes: Deferred Musculoskeletal: Yes: WNL Extremities: Yes: Erythema Edema: LLE: 1+ (left knee redness and erythema) Wound/Incision: Yes: Dressing Dry and Intact Neurological: Yes: WNL, Alert, Oriented ...Motor Strength: WNL Psychiatric: Yes: WNL Labs: CBC, BMP 11/12/18 06:00 11/12/18 06:00 INR, PTT INR 1.02 (0.83-1.09) 11/12/18 06:00 Problem List - Problems (1) Total knee replacement status Assessment/Plan: Left knee superficial wound infection s/p I&D left knee wound on antibiotics per ID (vanco and zosyn) blood cultures pending ID following post op care: incentive spirometer, early ambulation, bowel regimen. Code(s): Z96.659 - PRESENCE OF UNSPECIFIED ARTIFICIAL KNEE JOINT (2) HTN (hypertension) Assessment/Plan: BP controlled. continue home medications. Code(s): I10 - ESSENTIAL (PRIMARY) HYPERTENSION (3) Morbid obesity Assessment/Plan: dietary consult. outpatient nutrition follow up. Code(s): E66.01 - MORBID (SEVERE) OBESITY DUE TO EXCESS CALORIES (4) Prophylactic measure Assessment/Plan: fen PO diet monitor electrolytes prophy SCDs Code(s): Z29.9 - ENCOUNTER FOR PROPHYLACTIC MEASURES, UNSPECIFIED Visit type - Emergency Visit Emergency Visit: Yes ED Registration Date: 11/11/18 Care time: The patient presented to the Emergency Department on the above date and was hospitalized for further evaluation of their emergent condition. - New Patient This patient is new to me today: Yes Date on this admission: 11/12/18 - Critical Care Critical Care patient: No - Discharge Referral Referred to [facility] No
[2018-11-12] MEDS ORDERED: LACTATED RINGERS SOLUTION 1,000 ML/1,000 ML INFUS.BAG IV SCH (09:45)
--- NOTE | 2018-11-12 11:07 | EKG ---
Test Reason : Blood Pressure : / mmHG Vent. Rate : 064 BPM Atrial Rate : 064 BPM P-R Int : 142 ms QRS Dur : 084 ms QT Int : 446 ms P-R-T Axes : 022 003 063 degrees QTc Int : 460 ms NORMAL SINUS RHYTHM NORMAL ECG NO PREVIOUS ECGS AVAILABLE Confirmed by ROSITA SEGURA MD ([id number]) on 11/12/2018 11:07:04 AM Referred By: STEVE RIDDLE Confirmed By:ROSITA SEGURA MD
--- NOTE | 2018-11-12 11:36 | PN ---
Progress Note (short form) - Note Progress Note: ID CONSULT DICTATED SURGICAL WOUND INFECTION L TKR R/O INFECTED L TKR PROSTHESIS AWAIT C/S FOR OR CONTINUE EMPIRIC ZOSYN/ VANCOMYCIN
[2018-11-12] MEDS: BUSPIRONE HCL 10 MG, BUSPIRONE HCL 5 MG PO SCH ×3 (11:52→21:09)
[2018-11-12] MEDS ORDERED: ONDANSETRON 4 MG/2 ML VIAL IVPUSH PRN ×2 (12:25→13:44)
[2018-11-12] MEDS ORDERED: PROMETHAZINE HCL 25 MG/1 ML VIAL IVPUSH PRN (12:25)
[2018-11-12] MEDS ORDERED: PROPOFOL 20 ML ONE (12:29)
[2018-11-12] MEDS ORDERED: MIDAZOLAM HCL 2 MG/2 ML SINGLE DOSE VIAL ONE (12:29)
[2018-11-12] MEDS ORDERED: LACTATED RINGERS SOLUTION 1,000 ML IV SCH ×2 (12:30→13:45)
[2018-11-12] MEDS: VENLAFAXINE HCL 75 MG E.R. CAPSULES (FP) PO SCH (12:37)
[2018-11-12] MEDS ORDERED: VANCOMYCIN 1,000 MG VIAL (RESTRICTED TO ID ONLY) IVPB ONE (12:45)
[2018-11-12] MEDS ORDERED: SODIUM CHLORIDE 0.9% P/F 10 ML VIAL IJ ONE (12:47)
[2018-11-12] MEDS ORDERED: ceFAZolin SODIUM 1 GM VIAL ONE (12:47)
[2018-11-12] MEDS ORDERED: ceFAZolin SODIUM 1 GM VIAL IVPB ONE (12:47)
[2018-11-12] MEDS ORDERED: VECURONIUM BROMIDE 10 MG VIAL ONE (12:49)
[2018-11-12] MEDS ORDERED: DEXAMETHASONE SOD PHOSPHATE 4 MG/1 ML VIAL ONE (12:54)
[2018-11-12] MEDS ORDERED: KETOROLAC TROMETHAMINE 30 MG/1 ML VIAL ONE (13:09)
[2018-11-12] MEDS ORDERED: MAGNESIUM HYDROX 2400MG/30ML ORAL SUSPENSION 30 ML CUP PO PRN (13:44)
[2018-11-12] MEDS ORDERED: MAG HYDROX/AL HYDROX/SIMETH 30 ML UNIT-DOSE CUP PO PRN (13:44)
--- NOTE | 2018-11-12 13:50 | PN ---
Progress Note (short form) - Note Progress Note: 63F s/p LEFT total knee replacement POD #19 p/w superficial left knee wound infection. -Pain control: per anesthesia team. -Maintain left knee wound vac. -f/u OR left knee wound cultures. -Empiric IV Ancef until definitive wound cultures return. -f/u post-op TOV: 8 hours max. -f/u AM labs: trend CBC, ESR, CRP. -DVT PPx: -Chemical: ASA 81mg PO BID x 6 weeks post-op. -Mechanical: CAPRICE's, SCD's. -Incentive spirometry q15 min. -PT/OT/Rehab, OOB. -WBAT LLE; no left knee range of motion. -Diet as tolerated. -Care per medical hospitalist team. -Discharge planning: f/u [facility] [place] [facility] 7-10 days following hospital discharge. -Will follow. Rodolfo Rea MD (Orthopaedic Surgery).
--- NOTE | 2018-11-12 13:51 | OP ---
Operative Note - Note: Operative Date: 11/12/18 Pre-Operative Diagnosis: Left knee superficial wound infection Operation: I&D left knee wound Findings: Superficial infection. Post-Operative Diagnosis: Same as Pre-op Surgeon: Rodolfo Rea Scooter Mechanic: Rupert Rea Anesthesiologist/BLOCK CUBER: Jefe Rodas Anesthesia: General Specimens Removed: Culture sticks x 2. Estimated Blood Loss (mls): 10 Fluid Volume Replaced (mls): 700 (Crystalloid) Operative Report Dictated: Yes
[2018-11-12] MEDS: VANCOMYCIN HCL 1,500 MG in DEXTROSE 5%-WATER - 500 ML IVPB SCH ×2 (15:50→22:45)
[2018-11-12] MEDS ORDERED: CEFAZOLIN 2 GM in DEXTROSE 5%-WATER - 50 ML IVPB SCH (18:00)
--- NOTE | 2018-11-12 18:11 | CONS ---
DATE OF CONSULTATION: DATE OF DICTATION: 11/12/2018 HISTORY: The patient is a 63-year-old female with a history of osteoarthritis status post left total knee replacement on October 24, 2018, now evaluated for wound infection. She underwent a left total knee replacement at [facility]. Preoperatively, she received cefazolin. Her immediate postoperative course was uncomplicated. She had been seen in followup the following week by orthopedist with satisfactory wound healing. On Friday, November 09, 2018, the patient was walking in the park with a supportive brace. She removed the brace and noted avulsion of a scab at the middle aspect of the wound. Shaheen pus began to drain. The surrounding area became erythematous and warm. She has been experiencing pain since the surgery. She denies any associated fevers or chills. She was seen in the emergency room where she was given vancomycin and Zosyn. She is scheduled to return to the operating room today for a debridement. At the present time, she is awake and alert. She denies any pain. She has been afebrile with a normal white blood cell count. She denies prior history of soft tissue infection requiring hospitalization. No documented history of MRSA. PAST MEDICAL HISTORY: Positive for osteoarthritis, hypertension, depression, anxiety. PAST SURGICAL HISTORY: As above. ALLERGIES: No known allergies. MEDICATIONS: Vancomycin, Zosyn, Norvasc, BuSpar, Colace, Neurontin, lisinopril, oxycodone. SOCIAL HISTORY: She lives in the community. Former smoker. SYSTEMS REVIEW: Neurologic: No loss of consciousness, seizure activity, focal weakness. Cardiac: Negative chest pain or palpitations. Respiratory: Negative cough or sputum production. Gastrointestinal: Negative vomiting or diarrhea. Genitourinary: Negative for urinary tract infection. LABORATORY DATA: White count 7.5, hematocrit 33.5, platelets 354, BUN 15, creatinine 0.8. Urinalysis negative. Chest x-ray negative for acute infiltrate. PHYSICAL EXAMINATION: General: She is awake and alert, in no acute distress. Vital Signs: Temperature 98.5, blood pressure 132/70, pulse 64 and regular, respirations 20 per minute. HEENT: Sclerae anicteric. Heart: Sounds S1, S2. Lungs: Clear. Abdomen: Soft, nontender. Extremities: Examination of the lower extremities, there is a vertical surgical incision present over the left knee. There is erythema along the margin of the surgical wound. There is a partially dehisced area at the middle aspect of the wound from which seropurulent fluid is expressible. IMPRESSION: 1. Surgical wound infection, left total knee replacement. 2. Rule out infected left total knee replacement prosthesis. PLAN: Obtain wound cultures, blood cultures, sedimentation rate, C-reactive protein. Empiric antibiotic coverage with vancomycin and Zosyn pending cultures. Patient for debridement in the OR today. We will follow. Thank you for the kind referral. JOAN VALENCIA M.D. [id number]
[2018-11-12] MEDS ORDERED: CEFAZOLIN 2 GM/D5W 2 GM/50 ML ML IVPB SCH (19:00)
[2018-11-12] MEDS: CEFAZOLIN 2 GM/D5W 2 GM/50 ML ML IVPB SCH (19:19)
[2018-11-12] MEDS: ASPIRIN 325 MG TABLET PO SCH (21:07)
[2018-11-12] MEDS: SENNOSIDES/DOCUSATE COMBO (SENNA PLUS) TABLET (UD) PO SCH (21:13)
[2018-11-13] MEDS ORDERED: PIPERACILLIN/TAZOBACTAM 3.375 GM VIAL IVPB ONE ×4 (00:58→23:12)
[2018-11-13] MEDS ORDERED: DEXTROSE 5%-WATER - 50 ML IVPB ONE ×4 (00:58→23:12)
[2018-11-13] MEDS: PIPERACILLIN/TAZOB 3.375 GM 3.375 GM in DEXTROSE 5%-WATER - 50 ML IVPB SCH ×3 (01:24→17:59)
[2018-11-13] MEDS ORDERED: PIPERACILLIN/TAZOB 3.375 GM 3.375 GM in DEXTROSE 5%-WATER - 50 ML IVPB SCH (02:00)
[2018-11-13] MEDS: CEFAZOLIN 2 GM/D5W 2 GM/50 ML ML IVPB SCH (02:30)
[2018-11-13] MEDS: GABAPENTIN 300 MG CAPSULE (FP) PO SCH ×3 (06:49→21:24)
[2018-11-13] MEDS: HEPARIN NA (PORCINE) 5,000 UNITS/ML 1ML VIAL SQ SCH ×3 (06:49→21:22)
[2018-11-13 07:40] LABS: ALBUMIN 2.9 g/dl (3.4-5.0); BILIRUBIN,TOTAL 0.2 mg/dL (0.2-1); CALCIUM 8.9 mg/dL (8.5-10.1); CREATININE 0.9 mg/dL (0.55-1.3); MAGNESIUM 2.3 mg/dL (1.8-2.4); POTASSIUM 4.4 mmol/L (3.5-5.1); TOT PROT 5.3 g/dl (6.4-8.2)
[2018-11-13 07:50] LABS: BASO % 0.3 % (0-2.0); HEMATOCRIT 33.2 % (32.4-45.2); HEMOGLOBIN 10.9 GM/dL (10.7-15.3); LYMPH % 9.3 % (8-40); MCH 30.5 pg (25.7-33.7); MCHC 32.7 g/dl (32.0-36.0); MEAN CELL VOLUME 93.3 fl (80-96); MONO % 1.5 % (3.8-10.2); NEUT % 88.9 % (42.8-82.8); PLATELET COUNT 337 K/MM3 (134-434); RBC 3.56 M/mm3 (3.60-5.2); RDW 16.2 % (11.6-15.6); WHITE BLOOD COUNT 8.9 K/mm3 (4.0-10.0)
--- NOTE | 2018-11-13 08:00 | PN ---
Progress Note, Physician Chief Complaint: left knee infection History of Present Illness: 63F s/p LEFT total knee replacement POD #20 p/w superficial left knee wound infection. Patient was recently discharged from inpatient rehab. Noticed increased swelling and pain in left knee. Stated there was a scab near incision that fell off and then began to drain purulent fluid. Admitted through ED for I&D with Dr Rea -Patient is a 63 year-old female with a past medical history of hypertension, depression/anxiety, and OA s/p left total knee arthroplasty on 10/24/[address] Rodolfo Rea. Patient was transferred from [facility] by the request of Dr. Rea for evaluation of her left knee pain. Patient noticed drainage, redness, and erythema from her left knee at the site of surgery and here for surgical intervention. L . - Current Medication List Current Medications: Active Medications Al Hydroxide/Mg Hydroxide (Mylanta Oral Suspension -) 30 ml PO Q4H PRN PRN Reason: DYSPEPSIA Amlodipine Besylate (Norvasc -) 5 mg PO DAILY [facility] Last Admin: 11/12/18 09:19 Dose: 5 mg Aspirin (Asa -) 81 mg PO BID [facility] Last Admin: 11/12/18 21:07 Dose: 81 mg Buspirone HCl 10 mg/ Buspirone (HCl 5 mg) 15 mg PO BID [facility] Last Admin: 11/12/18 21:09 Dose: 15 mg Docusate Sodium (Colace -) 100 mg PO BID [facility] Last Admin: 11/12/18 21:10 Dose: 100 mg Gabapentin (Neurontin -) 300 mg PO TID [facility] Last Admin: 11/13/18 06:49 Dose: 300 mg Heparin Sodium (Porcine) (Heparin -) 5,000 unit SQ TID [facility] Last Admin: 11/13/18 06:49 Dose: 5,000 unit Piperacillin Sod/Tazobactam (Sod 3.375 gm/ Dextrose) 50 mls @ 100 mls/hr IVPB Q8H-IV [facility]; Protocol Last Admin: 11/13/18 01:24 Dose: 100 mls/hr Vancomycin HCl 1,500 mg/ (Dextrose) 500 mls @ 250 mls/hr IVPB Q12H [facility]; Protocol Last Admin: 11/12/18 22:45 Dose: 250 mls/hr Lisinopril (Prinivil) 10 mg PO DAILY [facility] Last Admin: 11/12/18 09:19 Dose: 10 mg Magnesium Hydroxide (Milk Of Magnesia -) 30 ml PO PRN PRN PRN Reason: CONSTIPATION Morphine Sulfate (Morphine Sulfate) 2 mg IVPUSH Q4H PRN PRN Reason: PAIN LEVEL 6-10 Last Admin: 11/12/18 21:14 Dose: 2 mg Ondansetron HCl (Zofran Injection) 4 mg IVPUSH Q6H PRN PRN Reason: NAUSEA Oxycodone HCl (Roxicodone -) 10 mg PO Q6H PRN PRN Reason: PAIN LEVEL 4 - 10 Last Admin: 11/12/18 22:42 Dose: 10 mg Pantoprazole Sodium (Protonix -) 40 mg PO DAILY [facility] Senna/Docusate Sodium (Pericolace -) 2 tablet PO BID [facility] Last Admin: 11/12/18 21:13 Dose: 2 tablet Venlafaxine HCl (Effexor Xr -) 150 mg PO DAILY@1200 [facility] Last Admin: 11/12/18 12:37 Dose: Not Given - Objective Vital Signs: Vital Signs Temperature 98.2 F 11/13/18 05:58 Pulse Rate 58 L 11/13/18 05:58 Respiratory Rate 20 11/13/18 05:58 Blood Pressure 106/66 11/13/18 05:58 O2 Sat by Pulse Oximetry (%) 93 L 11/12/18 21:00 Constitutional: Yes: Well Nourished, No Distress, Calm Eyes: Yes: WNL, Conjunctiva Clear, EOM Intact HENT: Yes: WNL, Atraumatic, Normocephalic Neck: Yes: WNL, Supple, Trachea Midline Cardiovascular: Yes: WNL, Regular Rate and Rhythm, Bradycardia Respiratory: Yes: WNL, Regular, CTA Bilaterally Gastrointestinal: Yes: WNL, Normal Bowel Sounds, Soft ...Rectal Exam: Yes: Deferred Genitourinary: Yes: WNL Musculoskeletal: Yes: Joint Swelling (left knee s/p I&D) Extremities: Yes: Other (left knee immobilizer in place) Edema: No Peripheral Pulses WNL: Yes Integumentary: Yes: WNL Wound/Incision: Yes: Clean/Dry, Other (VAC drain to left knee) ...Motor Strength: LLE (3/5 secondary to pain) Psychiatric: Yes: WNL, Alert, Oriented Labs: CBC, BMP 11/13/18 06:20 INR, PTT INR 1.02 (0.83-1.09) 11/12/18 06:00 - ....Imaging Chest X-ray: Report Reviewed, Image Reviewed X-ray: Report Reviewed EKG: Report Reviewed, Image Reviewed Problem List - Problems (1) Status post incision and drainage Assessment/Plan: POD#1 from I&D to left knee -Maintain left knee wound vac. -f/u OR left knee wound cultures. -Continue Vanco and Zosyn -awaiting sensitivities of wound cx -FWB as tolerated with knee brace in place Code(s): Z98.890 - OTHER SPECIFIED POSTPROCEDURAL STATES (2) Prophylactic measure Assessment/Plan: Prophy: heparin SQ TID maintain PPI Dispo Maintain as inpatient -Discharge planning -f/u [facility] [place] [facility] 7-10 days following hospital discharge. Code(s): Z29.9 - ENCOUNTER FOR PROPHYLACTIC MEASURES, UNSPECIFIED (3) Anxiety Assessment/Plan: maintain home buspar and effexor emotional support provided Code(s): F41.9 - ANXIETY DISORDER, UNSPECIFIED (4) HTN (hypertension) Assessment/Plan: maintain home norvasc continue asa Code(s): I10 - ESSENTIAL (PRIMARY) HYPERTENSION (5) Pain, postoperative, acute Assessment/Plan: continue oxycodone 10mg q6H prn pain patient states she was taking Code(s): G89.18 - OTHER ACUTE POSTPROCEDURAL PAIN (6) Pain, postoperative, chronic Assessment/Plan: Patient on oyxcontin at home for chronic pain of right knee will restart oxycontin 10mg q12 while in hospital and re-evaluate prior to discharge ISTOP performed Code(s): G89.28 - OTHER CHRONIC POSTPROCEDURAL PAIN Impression/Plan Impression/Plan: DISPO maintain as inpatient discharging planning full code Visit type - Emergency Visit Emergency Visit: Yes ED Registration Date: 11/11/18 Care time: The patient presented to the Emergency Department on the above date and was hospitalized for further evaluation of their emergent condition. - New Patient This patient is new to me today: Yes Date on this admission: 11/13/18 - Critical Care Critical Care patient: No - Discharge Referral Referred to [facility] No
[2018-11-13] MEDS: MORPHINE SULFATE 2 MG/ML VIAL IVPUSH PRN (08:47)
[2018-11-13] MEDS: amLODIPine BESYLATE 5 MG TABLET (FP) PO SCH (10:13)
[2018-11-13] MEDS: LISINOPRIL 10 MG TABLET (FP) PO SCH (10:13)
[2018-11-13] MEDS: DOCUSATE SODIUM 100 MG CAPSULE (FP) PO SCH ×2 (10:13→21:23)
[2018-11-13] MEDS: SENNOSIDES/DOCUSATE COMBO (SENNA PLUS) TABLET (UD) PO SCH ×2 (10:13→21:25)
[2018-11-13] MEDS: PANTOPRAZOLE 40 MG TABLET (FP) PO SCH (10:13)
[2018-11-13] MEDS: BUSPIRONE HCL 10 MG, BUSPIRONE HCL 5 MG PO SCH ×2 (10:14→21:25)
[2018-11-13] MEDS: ASPIRIN 81 MG CHEWABLE TABLETS PO SCH ×2 (10:26→21:24)
--- NOTE | 2018-11-13 11:19 | PN ---
Progress Note, Physician History of Present Illness: POD#1 I&D L TKR WOUND OOB IN CHAIR NO C/O KNEE PAIN WAS ABLE TO BEAR WT ON L LE W/O PAIN AFEBRILE CULTURES PENDING ESR 23 CRP 0.6 - Current Medication List Current Medications: Active Medications Al Hydroxide/Mg Hydroxide (Mylanta Oral Suspension -) 30 ml PO Q4H PRN PRN Reason: DYSPEPSIA Amlodipine Besylate (Norvasc -) 5 mg PO DAILY [facility] Last Admin: 11/13/18 10:13 Dose: 5 mg Aspirin (Asa -) 81 mg PO BID [facility] Last Admin: 11/13/18 10:26 Dose: 81 mg Buspirone HCl 10 mg/ Buspirone (HCl 5 mg) 15 mg PO BID [facility] Last Admin: 11/13/18 10:14 Dose: 15 mg Docusate Sodium (Colace -) 100 mg PO BID [facility] Last Admin: 11/13/18 10:13 Dose: 100 mg Gabapentin (Neurontin -) 300 mg PO TID [facility] Last Admin: 11/13/18 06:49 Dose: 300 mg Heparin Sodium (Porcine) (Heparin -) 5,000 unit SQ TID [facility] Last Admin: 11/13/18 06:49 Dose: 5,000 unit Piperacillin Sod/Tazobactam (Sod 3.375 gm/ Dextrose) 50 mls @ 100 mls/hr IVPB Q8H-IV [facility]; Protocol Last Admin: 11/13/18 10:15 Dose: 100 mls/hr Vancomycin HCl 1,500 mg/ (Dextrose) 500 mls @ 250 mls/hr IVPB Q12H [facility]; Protocol Last Admin: 11/12/18 22:45 Dose: 250 mls/hr Lisinopril (Prinivil) 10 mg PO DAILY [facility] Last Admin: 11/13/18 10:13 Dose: 10 mg Magnesium Hydroxide (Milk Of Magnesia -) 30 ml PO PRN PRN PRN Reason: CONSTIPATION Morphine Sulfate (Morphine Sulfate) 2 mg IVPUSH Q4H PRN PRN Reason: PAIN LEVEL 6-10 Last Admin: 11/13/18 08:47 Dose: 2 mg Ondansetron HCl (Zofran Injection) 4 mg IVPUSH Q6H PRN PRN Reason: NAUSEA Oxycodone HCl (Roxicodone -) 10 mg PO Q6H PRN PRN Reason: PAIN LEVEL 4 - 10 Last Admin: 11/12/18 22:42 Dose: 10 mg Pantoprazole Sodium (Protonix -) 40 mg PO DAILY [facility] Last Admin: 11/13/18 10:13 Dose: 40 mg Senna/Docusate Sodium (Pericolace -) 2 tablet PO BID [facility] Last Admin: 11/13/18 10:13 Dose: 2 tablet Venlafaxine HCl (Effexor Xr -) 150 mg PO DAILY@1200 [facility] Last Admin: 11/12/18 12:37 Dose: Not Given - Objective Vital Signs: Vital Signs Temperature 98.2 F 11/13/18 05:58 Pulse Rate 58 L 11/13/18 05:58 Respiratory Rate 20 11/13/18 05:58 Blood Pressure 106/66 11/13/18 05:58 O2 Sat by Pulse Oximetry (%) 93 L 11/12/18 21:00 Constitutional: Yes: No Distress Cardiovascular: Yes: Regular Rate and Rhythm, S1, S2 Respiratory: Yes: CTA Bilaterally Gastrointestinal: Yes: Normal Bowel Sounds, Soft. No: Tenderness Extremities: Yes: Other (POST OP DRESSING IN PLACE) Labs: CBC, BMP 11/13/18 06:51 11/13/18 06:20 INR, PTT INR 1.02 (0.83-1.09) 11/12/18 06:00 Assessment/Plan POD# 1 I&D L TKR SURGICAL WOUND AWAIT C/S CONTINUE ZOSYN/ VANCOMYCIN
[2018-11-13] MEDS: VENLAFAXINE HCL 75 MG E.R. CAPSULES (FP) PO SCH (12:03)
[2018-11-13] MEDS: VANCOMYCIN HCL 1,500 MG in DEXTROSE 5%-WATER - 500 ML IVPB SCH (12:26)
[2018-11-13] MEDS: ASPIRIN 325 MG TABLET PO SCH (13:15)
[2018-11-13] MEDS: oxyCODONE HCL 5 MG TABLET PO PRN (17:59)
[2018-11-13] MEDS ORDERED: PT OWN MED DRAWER 7, Y5N ONE ×3 (20:59→23:13)
[2018-11-13] MEDS: oxyCODONE HCL 10 MG SUSTAINED ACTING TABLET PO SCH (21:23)
[2018-11-14] MEDS: VANCOMYCIN HCL 1,500 MG in DEXTROSE 5%-WATER - 500 ML IVPB SCH ×3 (00:12→23:09)
[2018-11-14] MEDS: PIPERACILLIN/TAZOB 3.375 GM 3.375 GM in DEXTROSE 5%-WATER - 50 ML IVPB SCH ×3 (01:19→18:10)
[2018-11-14] MEDS: HEPARIN NA (PORCINE) 5,000 UNITS/ML 1ML VIAL SQ SCH ×3 (06:41→21:46)
[2018-11-14] MEDS: GABAPENTIN 300 MG CAPSULE (FP) PO SCH ×3 (06:41→21:44)
[2018-11-14 07:23] LABS: HEMATOCRIT 31.8 % (32.4-45.2); HEMOGLOBIN 10.5 GM/dL (10.7-15.3); MCHC 32.9 g/dl (32.0-36.0); MEAN CELL VOLUME 94.2 fl (80-96); MEAN PLT VOLUME 9.1 fl (7.5-11.1); PLATELET COUNT 336 K/MM3 (134-434); RBC 3.37 M/mm3 (3.60-5.2); RDW 16.4 % (11.6-15.6)
--- NOTE | 2018-11-14 07:47 | PN ---
Progress Note, Physician Chief Complaint: left knee infection History of Present Illness: 63F s/p LEFT total knee replacement POD #21 p/w superficial left knee wound infection. Patient was recently discharged from inpatient rehab. Noticed increased swelling and pain in left knee. Stated there was a scab near incision that fell off and then began to drain purulent fluid. Admitted through ED for I&D with Dr Rea -Patient is a 63 year-old female with a past medical history of hypertension, depression/anxiety, and OA s/p left total knee arthroplasty on 10/24/[address] Rodolfo Rea. Patient was transferred from [facility] by the request of Dr. Rea for evaluation of her left knee pain. Patient noticed drainage, redness, and erythema from her left knee at the site of surgery and here for surgical intervention. POD #2 . - Current Medication List Current Medications: Active Medications Al Hydroxide/Mg Hydroxide (Mylanta Oral Suspension -) 30 ml PO Q4H PRN PRN Reason: DYSPEPSIA Amlodipine Besylate (Norvasc -) 5 mg PO DAILY [facility] Last Admin: 11/13/18 10:13 Dose: 5 mg Aspirin (Asa -) 81 mg PO BID [facility] Last Admin: 11/13/18 21:24 Dose: 81 mg Buspirone HCl 10 mg/ Buspirone (HCl 5 mg) 15 mg PO BID [facility] Last Admin: 11/13/18 21:25 Dose: 15 mg Docusate Sodium (Colace -) 100 mg PO BID [facility] Last Admin: 11/13/18 21:23 Dose: 100 mg Gabapentin (Neurontin -) 300 mg PO TID [facility] Last Admin: 11/14/18 06:41 Dose: 300 mg Heparin Sodium (Porcine) (Heparin -) 5,000 unit SQ TID [facility] Last Admin: 11/14/18 06:41 Dose: 5,000 unit Piperacillin Sod/Tazobactam (Sod 3.375 gm/ Dextrose) 50 mls @ 100 mls/hr IVPB Q8H-IV [facility]; Protocol Last Admin: 11/14/18 01:19 Dose: 100 mls/hr Vancomycin HCl 1,500 mg/ (Dextrose) 500 mls @ 250 mls/hr IVPB Q12H [facility]; Protocol Last Admin: 11/14/18 00:12 Dose: 250 mls/hr Lisinopril (Prinivil) 10 mg PO DAILY [facility] Last Admin: 11/13/18 10:13 Dose: 10 mg Magnesium Hydroxide (Milk Of Magnesia -) 30 ml PO PRN PRN PRN Reason: CONSTIPATION Morphine Sulfate (Morphine Sulfate) 2 mg IVPUSH Q4H PRN PRN Reason: PAIN LEVEL 6-10 Last Admin: 11/13/18 08:47 Dose: 2 mg Ondansetron HCl (Zofran Injection) 4 mg IVPUSH Q6H PRN PRN Reason: NAUSEA Oxycodone HCl (Roxicodone -) 10 mg PO Q6H PRN PRN Reason: PAIN LEVEL 4 - 10 Last Admin: 11/13/18 17:59 Dose: 10 mg Oxycodone HCl (Oxycontin -) 10 mg PO BID [facility] Last Admin: 11/13/18 21:23 Dose: 10 mg Pantoprazole Sodium (Protonix -) 40 mg PO DAILY [facility] Last Admin: 11/13/18 10:13 Dose: 40 mg Senna/Docusate Sodium (Pericolace -) 2 tablet PO BID [facility] Last Admin: 11/13/18 21:25 Dose: 2 tablet Venlafaxine HCl (Effexor Xr -) 150 mg PO DAILY@1200 [facility] Last Admin: 11/13/18 12:03 Dose: 150 mg - Objective Vital Signs: Vital Signs Temperature 97.5 F L 11/14/18 06:00 Pulse Rate 62 11/14/18 06:00 Respiratory Rate 20 11/14/18 06:00 Blood Pressure 98/50 L 11/14/18 06:00 O2 Sat by Pulse Oximetry (%) 94 L 11/13/18 21:00 Constitutional: Yes: Well Nourished, No Distress, Calm Eyes: Yes: WNL, Conjunctiva Clear, EOM Intact HENT: Yes: WNL, Atraumatic, Normocephalic Neck: Yes: WNL, Supple, Trachea Midline Cardiovascular: Yes: WNL, Regular Rate and Rhythm Respiratory: Yes: WNL, Regular, CTA Bilaterally Gastrointestinal: Yes: WNL, Normal Bowel Sounds, Soft ...Rectal Exam: Yes: Deferred Genitourinary: Yes: WNL Breast(s): Yes: WNL Musculoskeletal: Yes: Joint Stiffness (to right knee), Joint Swelling (to leftknee) Edema: No Peripheral Pulses WNL: Yes Integumentary: Yes: WNL Wound/Incision: Yes: Clean/Dry, Other (left knee immobilizer in place, Vac with scant drainage) Labs: CBC, BMP 11/14/18 06:58 INR, PTT INR 1.02 (0.83-1.09) 11/12/18 06:00 Problem List - Problems (1) Status post incision and drainage Assessment/Plan: POD#2 from I&D to left knee -Maintain left knee wound vac. -would cx gowing LF GNB, e coli, pressumed MSSA -Continue Vanco and Zosyn -awaiting sensitivities of wound cx -FWB as tolerated with knee brace in place -ID following and appreciate input -possible return ro OR on monday with Dr Rea Code(s): Z98.890 - OTHER SPECIFIED POSTPROCEDURAL STATES (2) Prophylactic measure Assessment/Plan: Prophy: heparin SQ TID maintain PPI Dispo Maintain as inpatient -Discharge planning -f/u [facility] [place] [facility] 7-10 days following hospital discharge. Code(s): Z29.9 - ENCOUNTER FOR PROPHYLACTIC MEASURES, UNSPECIFIED (3) Anxiety Assessment/Plan: maintain home buspar and effexor emotional support provided Code(s): F41.9 - ANXIETY DISORDER, UNSPECIFIED (4) HTN (hypertension) Assessment/Plan: maintain home norvasc continue asa Code(s): I10 - ESSENTIAL (PRIMARY) HYPERTENSION (5) Pain, postoperative, acute Assessment/Plan: continue oxycodone 10mg q6H prn pain MSO4 for severe pain, try to wean off tmrw since oxycontin has been started Code(s): G89.18 - OTHER ACUTE POSTPROCEDURAL PAIN (6) Pain, postoperative, chronic Assessment/Plan: Patient on oyxcontin at home for chronic pain of right knee -continue oxycontin 10mg q12 while in hospital and re-evaluate prior to discharge ISTOP performed Code(s): G89.28 - OTHER CHRONIC POSTPROCEDURAL PAIN Impression/Plan Impression/Plan: DISPO maintain as inpatient discharging planning full code Visit type - Emergency Visit Emergency Visit: Yes ED Registration Date: 11/11/18 Care time: The patient presented to the Emergency Department on the above date and was hospitalized for further evaluation of their emergent condition. - New Patient This patient is new to me today: No - Critical Care Critical Care patient: No - Discharge Referral Referred to [facility] Med P.C.: No
[2018-11-14 07:53] LABS: ALBUMIN 2.8 g/dl (3.4-5.0); BILIRUBIN,TOTAL 0.4 mg/dL (0.2-1); CALCIUM 8.8 mg/dL (8.5-10.1); CREATININE 0.8 mg/dL (0.55-1.3); MAGNESIUM 2.1 mg/dL (1.8-2.4); POTASSIUM 4.2 mmol/L (3.5-5.1)
[2018-11-14] MEDS ORDERED: DEXTROSE 5%-WATER - 50 ML IVPB ONE ×2 (09:27→18:08)
[2018-11-14] MEDS ORDERED: PIPERACILLIN/TAZOBACTAM 3.375 GM VIAL IVPB ONE ×2 (09:27→18:08)
[2018-11-14] MEDS: ASPIRIN 81 MG CHEWABLE TABLETS PO SCH ×2 (09:41→21:44)
[2018-11-14] MEDS: oxyCODONE HCL 10 MG SUSTAINED ACTING TABLET PO SCH ×2 (09:57→21:44)
[2018-11-14] MEDS: amLODIPine BESYLATE 5 MG TABLET (FP) PO SCH (09:57)
[2018-11-14] MEDS: BUSPIRONE HCL 10 MG, BUSPIRONE HCL 5 MG PO SCH ×2 (09:57→21:47)
[2018-11-14] MEDS: DOCUSATE SODIUM 100 MG CAPSULE (FP) PO SCH ×3 (09:57→21:48)
[2018-11-14] MEDS: PANTOPRAZOLE 40 MG TABLET (FP) PO SCH (09:59)
[2018-11-14] MEDS: SENNOSIDES/DOCUSATE COMBO (SENNA PLUS) TABLET (UD) PO SCH ×3 (09:59→21:49)
[2018-11-14] MEDS: LISINOPRIL 10 MG TABLET (FP) PO SCH (09:59)
[2018-11-14] MEDS ORDERED: PT OWN MED DRAWER 7, Y5N ONE (11:24)
[2018-11-14] MEDS: VENLAFAXINE HCL 75 MG E.R. CAPSULES (FP) PO SCH (11:49)
[2018-11-14] MEDS: MORPHINE SULFATE 2 MG/ML VIAL IVPUSH PRN (14:31)
[2018-11-14] MEDS: oxyCODONE HCL 5 MG TABLET PO PRN (17:01)
[2018-11-15] MEDS: MORPHINE SULFATE 2 MG/ML VIAL IVPUSH PRN (00:09)
[2018-11-15] MEDS ORDERED: PIPERACILLIN/TAZOBACTAM 3.375 GM VIAL IVPB ONE ×4 (01:08→22:53)
[2018-11-15] MEDS ORDERED: DEXTROSE 5%-WATER - 50 ML IVPB ONE ×4 (01:08→22:53)
[2018-11-15] MEDS: PIPERACILLIN/TAZOB 3.375 GM 3.375 GM in DEXTROSE 5%-WATER - 50 ML IVPB SCH ×3 (02:00→17:35)
[2018-11-15] MEDS: oxyCODONE HCL 5 MG TABLET PO PRN ×3 (03:48→23:19)
[2018-11-15] MEDS: HEPARIN NA (PORCINE) 5,000 UNITS/ML 1ML VIAL SQ SCH ×3 (06:02→21:51)
[2018-11-15] MEDS: GABAPENTIN 300 MG CAPSULE (FP) PO SCH ×3 (06:02→21:54)
--- NOTE | 2018-11-15 08:28 | PN ---
Progress Note, Physician Chief Complaint: left knee infection History of Present Illness: 63F s/p LEFT total knee replacement POD #21 p/w superficial left knee wound infection. Patient was recently discharged from inpatient rehab. Noticed increased swelling and pain in left knee. Stated there was a scab near incision that fell off and then began to drain purulent fluid. Admitted through ED for I&D with Dr Rea -Patient is a 63 year-old female with a past medical history of hypertension, depression/anxiety, and OA s/p left total knee arthroplasty on 10/24/[address] Rodolfo Rea. Patient was transferred from [facility] by the request of Dr. Rea for evaluation of her left knee pain. Patient noticed drainage, redness, and erythema from her left knee at the site of surgery and here for surgical intervention. POD #3 . - Current Medication List Current Medications: Active Medications Al Hydroxide/Mg Hydroxide (Mylanta Oral Suspension -) 30 ml PO Q4H PRN PRN Reason: DYSPEPSIA Amlodipine Besylate (Norvasc -) 5 mg PO DAILY [facility] Last Admin: 11/14/18 09:57 Dose: 5 mg Aspirin (Asa -) 81 mg PO BID [facility] Last Admin: 11/14/18 21:44 Dose: 81 mg Buspirone HCl 10 mg/ Buspirone (HCl 5 mg) 15 mg PO BID [facility] Last Admin: 11/14/18 21:47 Dose: 15 mg Docusate Sodium (Colace -) 100 mg PO BID [facility] Last Admin: 11/14/18 21:48 Dose: Not Given Gabapentin (Neurontin -) 300 mg PO TID [facility] Last Admin: 11/15/18 06:02 Dose: 300 mg Heparin Sodium (Porcine) (Heparin -) 5,000 unit SQ TID [facility] Last Admin: 11/15/18 06:02 Dose: 5,000 unit Piperacillin Sod/Tazobactam (Sod 3.375 gm/ Dextrose) 50 mls @ 100 mls/hr IVPB Q8H-IV [facility]; Protocol Last Admin: 11/15/18 02:00 Dose: 100 mls/hr Vancomycin HCl 1,500 mg/ (Dextrose) 500 mls @ 250 mls/hr IVPB Q12H [facility]; Protocol Last Admin: 11/14/18 23:09 Dose: 250 mls/hr Lisinopril (Prinivil) 10 mg PO DAILY [facility] Last Admin: 11/14/18 09:59 Dose: 10 mg Magnesium Hydroxide (Milk Of Magnesia -) 30 ml PO PRN PRN PRN Reason: CONSTIPATION Ondansetron HCl (Zofran Injection) 4 mg IVPUSH Q6H PRN PRN Reason: NAUSEA Oxycodone HCl (Oxycontin -) 10 mg PO BID [facility] Last Admin: 11/14/18 21:44 Dose: 10 mg Pantoprazole Sodium (Protonix -) 40 mg PO DAILY [facility] Last Admin: 11/14/18 09:59 Dose: 40 mg Senna/Docusate Sodium (Pericolace -) 2 tablet PO BID [facility] Last Admin: 11/14/18 21:49 Dose: Not Given Venlafaxine HCl (Effexor Xr -) 150 mg PO DAILY@1200 [facility] Last Admin: 11/14/18 11:49 Dose: 150 mg - Objective Vital Signs: Vital Signs Temperature 98.3 F 11/15/18 06:00 Pulse Rate 67 11/15/18 06:00 Respiratory Rate 20 11/15/18 06:00 Blood Pressure 103/63 11/15/18 06:00 O2 Sat by Pulse Oximetry (%) 94 L 11/14/18 21:00 Constitutional: Yes: Well Nourished, No Distress, Calm Eyes: Yes: WNL, Conjunctiva Clear, EOM Intact HENT: Yes: WNL, Atraumatic, Normocephalic Neck: Yes: WNL, Supple, Trachea Midline Cardiovascular: Yes: WNL, Regular Rate and Rhythm Respiratory: Yes: WNL, Regular, CTA Bilaterally Gastrointestinal: Yes: WNL, Normal Bowel Sounds, Soft ...Rectal Exam: Yes: Deferred Genitourinary: Yes: WNL Breast(s): Yes: WNL Musculoskeletal: Yes: WNL, Joint Stiffness (right knee) Extremities: Yes: Other (knee immobilizer in place. Vac drain with scant drainage) Edema: No Peripheral Pulses WNL: Yes Integumentary: Yes: WNL Wound/Incision: Yes: Clean/Dry, Well Approximated Neurological: Yes: WNL, Alert, Oriented ...Motor Strength: RUE, RLE (4/5) Psychiatric: Yes: WNL, Alert, Oriented Labs: CBC, BMP 11/14/18 06:58 INR, PTT INR 1.02 (0.83-1.09) 11/12/18 06:00 Problem List - Problems (1) Status post incision and drainage Assessment/Plan: POD#3 from I&D to left knee -Maintain left knee wound vac. -would cx gowing LF GNB, e coli, pressumed MSSA -Continue Vanco and Zosyn -awaiting sensitivities of wound cx -FWB as tolerated with knee brace in place -ID following and appreciate input -possible return to OR on monday with Dr Rea Code(s): Z98.890 - OTHER SPECIFIED POSTPROCEDURAL STATES (2) Prophylactic measure Assessment/Plan: Prophy: heparin SQ TID maintain PPI Dispo Maintain as inpatient -Discharge planning -f/u [facility] [place] [facility] 7-10 days following hospital discharge. Code(s): Z29.9 - ENCOUNTER FOR PROPHYLACTIC MEASURES, UNSPECIFIED (3) Anxiety Assessment/Plan: maintain home buspar and effexor emotional support provided Code(s): F41.9 - ANXIETY DISORDER, UNSPECIFIED (4) HTN (hypertension) Assessment/Plan: maintain home norvasc continue asa Code(s): I10 - ESSENTIAL (PRIMARY) HYPERTENSION (5) Pain, postoperative, acute Assessment/Plan: continue oxycodone 10mg q6H prn pain dc MSO4 yesterday, oxycodone for break through pain Code(s): G89.18 - OTHER ACUTE POSTPROCEDURAL PAIN (6) Pain, postoperative, chronic Assessment/Plan: Patient on oyxcontin at home for chronic pain of right knee -continue oxycontin 10mg q12 while in hospital and re-evaluate prior to discharge ISTOP performed Code(s): G89.28 - OTHER CHRONIC POSTPROCEDURAL PAIN Impression/Plan Impression/Plan: DISPO maintain as inpatient discharging planning full code Visit type - Emergency Visit Emergency Visit: Yes ED Registration Date: 11/11/18 Care time: The patient presented to the Emergency Department on the above date and was hospitalized for further evaluation of their emergent condition. - New Patient This patient is new to me today: No - Critical Care Critical Care patient: No - Discharge Referral Referred to [facility] Med P.C.: No
[2018-11-15 08:29] LABS: BILIRUBIN,TOTAL 0.3 mg/dL (0.2-1); CALCIUM 9.1 mg/dL (8.5-10.1); CREATININE 0.8 mg/dL (0.55-1.3); MAGNESIUM 2.1 mg/dL (1.8-2.4); POTASSIUM 4.2 mmol/L (3.5-5.1); TOT PROT 5.3 g/dl (6.4-8.2)
[2018-11-15] MEDS: BUSPIRONE HCL 10 MG, BUSPIRONE HCL 5 MG PO SCH ×2 (10:09→21:52)
[2018-11-15] MEDS: LISINOPRIL 10 MG TABLET (FP) PO SCH (10:11)
[2018-11-15] MEDS: amLODIPine BESYLATE 5 MG TABLET (FP) PO SCH (10:11)
[2018-11-15] MEDS: PANTOPRAZOLE 40 MG TABLET (FP) PO SCH (10:11)
[2018-11-15] MEDS: ASPIRIN 81 MG CHEWABLE TABLETS PO SCH ×2 (10:11→21:53)
[2018-11-15] MEDS: oxyCODONE HCL 10 MG SUSTAINED ACTING TABLET PO SCH ×2 (10:13→21:52)
[2018-11-15] MEDS: DOCUSATE SODIUM 100 MG CAPSULE (FP) PO SCH ×2 (10:13→21:54)
[2018-11-15] MEDS: SENNOSIDES/DOCUSATE COMBO (SENNA PLUS) TABLET (UD) PO SCH ×2 (10:16→21:54)
[2018-11-15] MEDS ORDERED: oxyCODONE HCL 5 MG TABLET PO PRN (12:04)
[2018-11-15] MEDS: VANCOMYCIN HCL 1,500 MG in DEXTROSE 5%-WATER - 500 ML IVPB SCH ×2 (12:08→23:18)
[2018-11-15] MEDS: VENLAFAXINE HCL 75 MG E.R. CAPSULES (FP) PO SCH (12:08)
[2018-11-15] MEDS: SODIUM CHLORIDE 1,000 ML IV SCH (17:32)
[2018-11-15] MEDS ORDERED: PT OWN MED DRAWER 7, Y5N ONE ×2 (17:39→21:21)
--- NOTE | 2018-11-15 22:55 | PN ---
Progress Note (short form) - Note Progress Note: 63F s/p LEFT total knee replacement now p/w superficial left knee wound infection. -NPO at midnight, IVF. -Hold all chemical DVT PPx. -Plan for OR tomorrow (11/16/2018) for left knee wound I&D and possible primary closure. -Pain control. -Maintain left knee wound vac. -f/u OR left knee wound cultures. -Empiric IV Ancef until definitive wound cultures return. -f/u AM labs. -DVT PPx: -Chemical: hold. -Mechanical: CAPRICE's, SCD's. -Incentive spirometry q15 min. -PT/OT/Rehab, OOB. -WBAT LLE; no left knee range of motion. -Care per medical hospitalist team. -Discharge planning: f/u [facility] [place] [facility] 7-10 days following hospital discharge. -Will follow. Rodolfo Rea MD (Orthopaedic Surgery).
[2018-11-16] MEDS: PIPERACILLIN/TAZOB 3.375 GM 3.375 GM in DEXTROSE 5%-WATER - 50 ML IVPB SCH ×3 (01:54→20:06)
[2018-11-16] MEDS: GABAPENTIN 300 MG CAPSULE (FP) PO SCH ×4 (05:49→22:18)
[2018-11-16 07:28] LABS: BASO % 1.1 % (0-2.0); EOS % 7.9 % (0-4.5); HEMATOCRIT 31.6 % (32.4-45.2); HEMOGLOBIN 10.4 GM/dL (10.7-15.3); LYMPH % 15.1 % (8-40); MCH 30.7 pg (25.7-33.7); MEAN CELL VOLUME 93.2 fl (80-96); MEAN PLT VOLUME 8.9 fl (7.5-11.1); MONO % 9.4 % (3.8-10.2); NEUT % 66.5 % (42.8-82.8); PLATELET COUNT 298 K/MM3 (134-434); RBC 3.39 M/mm3 (3.60-5.2); RDW 16.5 % (11.6-15.6); WHITE BLOOD COUNT 9.4 K/mm3 (4.0-10.0)
[2018-11-16 08:12] LABS: ALBUMIN 2.8 g/dl (3.4-5.0); BILIRUBIN,TOTAL 0.4 mg/dL (0.2-1); CREATININE 0.9 mg/dL (0.55-1.3); MAGNESIUM 2.1 mg/dL (1.8-2.4); POTASSIUM 3.8 mmol/L (3.5-5.1)
[2018-11-16] MEDS ORDERED: PT OWN MED DRAWER 7, Y5N ONE ×4 (09:40→12:05)
[2018-11-16] MEDS ORDERED: PIPERACILLIN/TAZOBACTAM 3.375 GM VIAL IVPB ONE ×2 (09:40→19:00)
[2018-11-16] MEDS ORDERED: DEXTROSE 5%-WATER - 50 ML IVPB ONE (09:41)
[2018-11-16] MEDS: BUSPIRONE HCL 10 MG, BUSPIRONE HCL 5 MG PO SCH ×2 (09:45→22:17)
[2018-11-16] MEDS: oxyCODONE HCL 10 MG SUSTAINED ACTING TABLET PO SCH (09:46)
[2018-11-16] MEDS: DOCUSATE SODIUM 100 MG CAPSULE (FP) PO SCH ×2 (09:46→22:19)
[2018-11-16] MEDS: amLODIPine BESYLATE 5 MG TABLET (FP) PO SCH (09:46)
[2018-11-16] MEDS: LISINOPRIL 10 MG TABLET (FP) PO SCH (09:48)
[2018-11-16] MEDS: SENNOSIDES/DOCUSATE COMBO (SENNA PLUS) TABLET (UD) PO SCH ×2 (09:48→22:19)
[2018-11-16] MEDS: PANTOPRAZOLE 40 MG TABLET (FP) PO SCH (09:48)
[2018-11-16] MEDS: VENLAFAXINE HCL 75 MG E.R. CAPSULES (FP) PO SCH (12:15)
[2018-11-16] MEDS: VANCOMYCIN HCL 1,500 MG in DEXTROSE 5%-WATER - 500 ML IVPB SCH ×2 (12:16→22:56)
[2018-11-16] MEDS: oxyCODONE HCL 5 MG TABLET PO PRN ×2 (14:21→22:19)
--- NOTE | 2018-11-16 16:31 | PN ---
Progress Note, Physician Chief Complaint: left knee infection History of Present Illness: 63F s/p LEFT total knee replacement POD #22 p/w superficial left knee wound infection. Patient was recently discharged from inpatient rehab. Noticed increased swelling and pain in left knee. Stated there was a scab near incision that fell off and then began to drain purulent fluid. Admitted through ED for I&D with Dr Rea -Patient is a 63 year-old female with a past medical history of hypertension, depression/anxiety, and OA s/p left total knee arthroplasty on 10/24/[address] Rodolfo Rea. Patient was transferred from [facility] by the request of Dr. Rea for evaluation of her left knee pain. Patient noticed drainage, redness, and erythema from her left knee at the site of surgery and here for surgical intervention. POD #4 . - Current Medication List Current Medications: Active Medications Al Hydroxide/Mg Hydroxide (Mylanta Oral Suspension -) 30 ml PO Q4H PRN PRN Reason: DYSPEPSIA Amlodipine Besylate (Norvasc -) 5 mg PO DAILY [facility] Last Admin: 11/16/18 09:46 Dose: 5 mg Buspirone HCl 10 mg/ Buspirone (HCl 5 mg) 15 mg PO BID [facility] Last Admin: 11/16/18 09:45 Dose: 15 mg Docusate Sodium (Colace -) 100 mg PO BID [facility] Last Admin: 11/16/18 09:46 Dose: Not Given Gabapentin (Neurontin -) 300 mg PO TID [facility] Last Admin: 11/16/18 14:23 Dose: 300 mg Piperacillin Sod/Tazobactam (Sod 3.375 gm/ Dextrose) 50 mls @ 100 mls/hr IVPB Q8H-IV [facility]; Protocol Last Admin: 11/16/18 09:48 Dose: 100 mls/hr Vancomycin HCl 1,500 mg/ (Dextrose) 500 mls @ 250 mls/hr IVPB Q12H [facility]; Protocol Last Admin: 11/16/18 12:16 Dose: 250 mls/hr Sodium Chloride (Normal Saline -) 1,000 mls @ 75 mls/hr IV [facility]IR [facility] Last Admin: 11/15/18 17:32 Dose: 75 mls/hr Lisinopril (Prinivil) 10 mg PO DAILY [facility] Last Admin: 11/16/18 09:48 Dose: 10 mg Magnesium Hydroxide (Milk Of Magnesia -) 30 ml PO PRN PRN PRN Reason: CONSTIPATION Ondansetron HCl (Zofran Injection) 4 mg IVPUSH Q6H PRN PRN Reason: NAUSEA Oxycodone HCl (Oxycontin -) 10 mg PO BID [facility] Last Admin: 11/16/18 09:46 Dose: 10 mg Oxycodone HCl (Roxicodone -) 5 mg PO Q6H PRN PRN Reason: PAIN LEVEL 4 - 6 Last Admin: 11/15/18 14:48 Dose: 5 mg Oxycodone HCl (Roxicodone -) 10 mg PO Q6H PRN PRN Reason: PAIN LEVEL 7 - 10 Last Admin: 11/16/18 14:21 Dose: 10 mg Pantoprazole Sodium (Protonix -) 40 mg PO DAILY [facility] Last Admin: 11/16/18 09:48 Dose: 40 mg Senna/Docusate Sodium (Pericolace -) 2 tablet PO BID [facility] Last Admin: 11/16/18 09:48 Dose: Not Given Venlafaxine HCl (Effexor Xr -) 150 mg PO DAILY@1200 [facility] Last Admin: 11/16/18 12:15 Dose: 150 mg - Objective Vital Signs: Vital Signs Temperature 98.4 F 11/16/18 08:50 Pulse Rate 81 11/16/18 08:50 Respiratory Rate 18 11/16/18 08:50 Blood Pressure 142/77 11/16/18 08:50 O2 Sat by Pulse Oximetry (%) 98 11/15/18 09:00 Constitutional: Yes: Well Nourished, No Distress, Calm Eyes: Yes: WNL, Conjunctiva Clear, EOM Intact HENT: Yes: WNL, Atraumatic, Normocephalic Neck: Yes: WNL, Supple, Trachea Midline Cardiovascular: Yes: WNL, Regular Rate and Rhythm Respiratory: Yes: WNL, Regular Gastrointestinal: Yes: WNL, Normal Bowel Sounds, Abdomen, Obese ...Rectal Exam: Yes: Deferred Musculoskeletal: Yes: Joint Stiffness, Other (right knee) Extremities: Yes: Other (left knee immobolizer in place with vac drain with scant drainage) Edema: No Peripheral Pulses WNL: Yes Integumentary: Yes: WNL Wound/Incision: Yes: Clean/Dry, Other (knee immobolizer) ...Motor Strength: LLE, RLE (4/5) Psychiatric: Yes: WNL, Alert, Oriented Labs: CBC, BMP 11/16/18 07:00 11/16/18 07:00 INR, PTT INR 1.02 (0.83-1.09) 11/12/18 06:00 Problem List - Problems (1) Status post incision and drainage Assessment/Plan: POD#4 from I&D to left knee -Maintain left knee wound vac. -would cx gowing LF GNB, e coli, pressumed MSSA -Continue Vanco and Zosyn -awaiting sensitivities of wound cx -FWB as tolerated with knee brace in place -ID following and appreciate input - return to OR on today with Dr Rea Code(s): Z98.890 - OTHER SPECIFIED POSTPROCEDURAL STATES (2) Prophylactic measure Assessment/Plan: Prophy: heparin SQ TID maintain PPI Dispo Maintain as inpatient -Discharge planning -f/u [facility] [place] [facility] 7-10 days following hospital discharge. Code(s): Z29.9 - ENCOUNTER FOR PROPHYLACTIC MEASURES, UNSPECIFIED (3) Anxiety Assessment/Plan: maintain home buspar and effexor emotional support provided Code(s): F41.9 - ANXIETY DISORDER, UNSPECIFIED (4) HTN (hypertension) Assessment/Plan: maintain home norvasc continue asa Code(s): I10 - ESSENTIAL (PRIMARY) HYPERTENSION (5) Pain, postoperative, acute Assessment/Plan: continue oxycodone 10mg q6H prn pain dc MSO4 oxycodone for break through pain Code(s): G89.18 - OTHER ACUTE POSTPROCEDURAL PAIN (6) Pain, postoperative, chronic Assessment/Plan: Patient on oyxcontin at home for chronic pain of right knee -continue oxycontin 10mg q12 while in hospital and re-evaluate prior to discharge ISTOP performed Code(s): G89.28 - OTHER CHRONIC POSTPROCEDURAL PAIN Impression/Plan Impression/Plan: DISPO maintain as inpatient discharging planning full code Visit type - Emergency Visit Emergency Visit: Yes ED Registration Date: 11/11/18 Care time: The patient presented to the Emergency Department on the above date and was hospitalized for further evaluation of their emergent condition. - New Patient This patient is new to me today: No - Critical Care Critical Care patient: No - Discharge Referral Referred to [facility] No
[2018-11-16] MEDS ORDERED: MIDAZOLAM HCL 2 MG/2 ML SINGLE DOSE VIAL ONE ×3 (16:46→16:57)
[2018-11-16] MEDS ORDERED: KETOROLAC TROMETHAMINE 30 MG/1 ML VIAL ONE (16:52)
[2018-11-16] MEDS ORDERED: DEXAMETHASONE SOD PHOSPHATE 4 MG/1 ML VIAL ONE (16:52)
[2018-11-16] MEDS ORDERED: ONDANSETRON 4 MG/2 ML VIAL IVPUSH PRN ×3 (17:58→19:59)
[2018-11-16] MEDS ORDERED: oxyCODONE HCL 5 MG TABLET PO PRN ×2 (17:58→19:59)
[2018-11-16] MEDS ORDERED: PROMETHAZINE HCL 25 MG/1 ML VIAL IVPUSH PRN ×2 (17:58→19:59)
--- NOTE | 2018-11-16 17:58 | PN ---
Progress Note (short form) - Note Progress Note: 63F s/p I&D superficial LEFT knee wound POD #0. Wound appearance: healthy, excellent granulation tissue bed, no evidence of gross contamination. -Pain control. -DVT PPx: -Chemical: Aspiring 81mg PO BID x 6 weeks only. -Mechanical: CAPRICE's, SCD's. -Incentive spirometry q15 min. -PT/OT/Rehab, OOB. -WBAT LLE; no left knee range of motion. -Left knee immobilizer in place. -f/u OR left knee wound cultures. -Continue IV antibiotics. -f/u AM labs. -Care per medical hospitalist team & ID teams. -Discharge planning: f/u [facility] [place] [facility] 7-10 days following hospital discharge. -Will follow. Rodolfo Rea MD (Orthopaedic Surgery).
--- NOTE | 2018-11-16 17:59 | OP ---
Operative Note - Note: Operative Date: 11/16/18 Pre-Operative Diagnosis: Superficial left knee wound infection. Operation: 1. Removal left knee wound vac. 2. Irrigation and debridement left knee wound. 3. Primary closure superficial left knee wound (~20cm) Findings: Wound appearance: healthy, excellent granulation tissue bed, no evidence of gross contamination. Post-Operative Diagnosis: Same as Pre-op Surgeon: Rodolfo Rea Varnish Thinner: Rupert Rea Anesthesiologist/PHILOSOPHY FACULTY MEMBER: Maikel Daly Anesthesia: General Specimens Removed: 2 x wound culture sticks Estimated Blood Loss (mls): 0 Fluid Volume Replaced (mls): 600 (Crystalloid) Operative Report Dictated: Yes
[2018-11-16] MEDS ORDERED: SODIUM CHLORIDE 1,000 ML IV SCH (19:59)
[2018-11-16] MEDS ORDERED: MAG HYDROX/AL HYDROX/SIMETH 30 ML UNIT-DOSE CUP PO PRN (19:59)
[2018-11-16] MEDS ORDERED: MAGNESIUM HYDROX 2400MG/30ML ORAL SUSPENSION 30 ML CUP PO PRN (19:59)
[2018-11-16] MEDS: SODIUM CHLORIDE 1,000 ML IV SCH (20:05)
[2018-11-16] MEDS ORDERED: ASPIRIN COATED 81 MG TABLET.EC PO SCH (22:00)
[2018-11-16] MEDS: ASPIRIN COATED 81 MG TABLET.EC PO SCH (22:19)
[2018-11-17] MEDS ORDERED: DEXTROSE 5%-WATER - 50 ML IVPB ONE ×3 (01:16→16:38)
[2018-11-17] MEDS ORDERED: PIPERACILLIN/TAZOBACTAM 3.375 GM VIAL IVPB ONE ×3 (01:16→16:38)
[2018-11-17] MEDS: PIPERACILLIN/TAZOB 3.375 GM 3.375 GM in DEXTROSE 5%-WATER - 50 ML IVPB SCH ×3 (01:24→17:10)
[2018-11-17] MEDS: oxyCODONE HCL 5 MG TABLET PO PRN ×3 (03:31→12:30)
[2018-11-17] MEDS: GABAPENTIN 300 MG CAPSULE (FP) PO SCH ×3 (06:44→21:37)
[2018-11-17 07:48] LABS: BASO % 0.6 % (0-2.0); EOS % 0.1 % (0-4.5); HEMATOCRIT 32.5 % (32.4-45.2); HEMOGLOBIN 10.6 GM/dL (10.7-15.3); MCH 30.5 pg (25.7-33.7); MCHC 32.6 g/dl (32.0-36.0); MEAN CELL VOLUME 93.6 fl (80-96); MEAN PLT VOLUME 9.3 fl (7.5-11.1); MONO % 7.2 % (3.8-10.2); NEUT % 81.1 % (42.8-82.8); RBC 3.47 M/mm3 (3.60-5.2); RDW 15.9 % (11.6-15.6); WHITE BLOOD COUNT 8.1 K/mm3 (4.0-10.0)
--- NOTE | 2018-11-17 08:00 | PN ---
Progress Note, Physician Chief Complaint: left knee infection History of Present Illness: 63F s/p LEFT total knee replacement POD #23 p/w superficial left knee wound infection. Patient was recently discharged from inpatient rehab. Noticed increased swelling and pain in left knee. Stated there was a scab near incision that fell off and then began to drain purulent fluid. Admitted through ED for I&D with Dr Rea -Patient is a 63 year-old female with a past medical history of hypertension, depression/anxiety, and OA s/p left total knee arthroplasty on 10/24/[address] Rodolfo Rea. Patient was transferred from [facility] by the request of Dr. Rea for evaluation of her left knee pain. Patient noticed drainage, redness, and erythema from her left knee at the site of surgery and here for surgical intervention. POD #5. POD#1 for wash out & vac removal . - Current Medication List Current Medications: Active Medications Al Hydroxide/Mg Hydroxide (Mylanta Oral Suspension -) 30 ml PO Q4H PRN PRN Reason: DYSPEPSIA Amlodipine Besylate (Norvasc -) 5 mg PO DAILY [facility] Aspirin (Ecotrin -) 81 mg PO BID [facility] Last Admin: 11/16/18 22:19 Dose: 81 mg Buspirone HCl 10 mg/ Buspirone (HCl 5 mg) 15 mg PO BID [facility] Last Admin: 11/16/18 22:17 Dose: 15 mg Docusate Sodium (Colace -) 100 mg PO BID [facility] Last Admin: 11/16/18 22:19 Dose: Not Given Fentanyl (Sublimaze Injection -) 25 mcg IVPUSH [id number] PRN PRN Reason: PAIN-PACU ORDER X 4 DOSES ONLY Gabapentin (Neurontin -) 300 mg PO TID [facility] Last Admin: 11/17/18 06:44 Dose: 300 mg Sodium Chloride (Normal Saline -) 1,000 mls @ 75 mls/hr IV ASDIR [facility] Last Admin: 11/16/18 22:16 Dose: Not Given Vancomycin HCl 1,500 mg/ (Dextrose) 500 mls @ 250 mls/hr IVPB Q12H [facility]; Protocol Last Admin: 11/16/18 22:56 Dose: 250 mls/hr Piperacillin Sod/Tazobactam (Sod 3.375 gm/ Dextrose) 50 mls @ 100 mls/hr IVPB Q8H-IV [facility]; Protocol Last Admin: 11/17/18 01:24 Dose: 100 mls/hr Lisinopril (Prinivil) 10 mg PO DAILY [facility] Magnesium Hydroxide (Milk Of Magnesia -) 30 ml PO PRN PRN PRN Reason: CONSTIPATION Ondansetron HCl (Zofran Injection) 4 mg IVPUSH Q6H PRN PRN Reason: NAUSEA Ondansetron HCl (Zofran Injection) 4 mg IVPUSH Q6H PRN PRN Reason: NAUSEA AND/OR VOMITING Oxycodone HCl (Roxicodone -) 5 mg PO Q6H PRN PRN Reason: PAIN LEVEL 4 - 6 Oxycodone HCl (Roxicodone -) 10 mg PO Q6H PRN PRN Reason: PAIN LEVEL 7 - 10 Last Admin: 11/17/18 03:31 Dose: 10 mg Oxycodone HCl (Roxicodone -) 5 mg PO Q4H PRN PRN Reason: PAIN LEVEL 1-5 Stop: 11/17/18 17:57 Pantoprazole Sodium (Protonix -) 40 mg PO DAILY [facility] Promethazine HCl (Phenergan Injection -) 12.5 mg IVPUSH Q6H PRN PRN Reason: NAUSEA-FOR RESCUE AFTER 15 MIN Senna/Docusate Sodium (Pericolace -) 2 tablet PO BID [facility] Last Admin: 11/16/18 22:19 Dose: Not Given Venlafaxine HCl (Effexor Xr -) 150 mg PO DAILY@1200 [facility] - Objective Vital Signs: Vital Signs Temperature 98.6 F 11/17/18 06:40 Pulse Rate 71 11/17/18 06:40 Respiratory Rate 20 11/17/18 06:40 Blood Pressure 119/76 11/17/18 06:40 O2 Sat by Pulse Oximetry (%) 98 11/16/18 21:00 Constitutional: Yes: Well Nourished, No Distress, Calm Eyes: Yes: WNL, Conjunctiva Clear, EOM Intact HENT: Yes: WNL, Atraumatic, Normocephalic Neck: Yes: WNL, Supple, Trachea Midline Cardiovascular: Yes: WNL, Regular Rate and Rhythm Respiratory: Yes: WNL, Regular, CTA Bilaterally Gastrointestinal: Yes: WNL, Normal Bowel Sounds, Soft ...Rectal Exam: Yes: Deferred Genitourinary: Yes: WNL Musculoskeletal: Yes: WNL, Joint Stiffness (the right knee, Left knee immobilizer in place) Extremities: Yes: WNL Edema: Yes Edema: LLE: 1+, RLE: 1+ Peripheral Pulses WNL: Yes Wound/Incision: Yes: Clean/Dry, Other (vac removed, knee immobilizer in place) Neurological: Yes: WNL, Alert, Oriented ...Motor Strength: LLE, RLE Psychiatric: Yes: WNL, Alert, Oriented Labs: INR, PTT INR 1.02 (0.83-1.09) 11/12/18 06:00 Problem List - Problems (1) Status post incision and drainage Assessment/Plan: 2nd OR POD#1 for washout and VAC removal /POD#5 from I&D to left knee -would cx gowing LF GNB, e coli, pressumed MSSA -Continue Vanco and Zosyn -awaiting sensitivities -FWB as tolerated with knee brace in place -ID following and appreciate input Code(s): Z98.890 - OTHER SPECIFIED POSTPROCEDURAL STATES (2) Prophylactic measure Assessment/Plan: Prophy: heparin SQ TID maintain PPI -DVT PPx: -Chemical: [id number] PO BID x 6 weeks only. -Mechanical: CAPRICE's, SCD's. Dispo Maintain as inpatient -Discharge planning -f/u [facility] [place] [facility] 7-10 days following hospital discharge. Code(s): Z29.9 - ENCOUNTER FOR PROPHYLACTIC MEASURES, UNSPECIFIED (3) Anxiety Assessment/Plan: maintain home buspar and effexor emotional support provided Code(s): F41.9 - ANXIETY DISORDER, UNSPECIFIED (4) HTN (hypertension) Assessment/Plan: maintain home norvasc continue asa Code(s): I10 - ESSENTIAL (PRIMARY) HYPERTENSION (5) Pain, postoperative, acute Assessment/Plan: continue oxycodone 10mg q6H prn pain oxycodone for break through pain Code(s): G89.18 - OTHER ACUTE POSTPROCEDURAL PAIN (6) Pain, postoperative, chronic Assessment/Plan: Patient on oyxcontin at home for chronic pain of right knee -continue oxycontin 10mg q12 while in hospital and re-evaluate prior to discharge ISTOP performed Code(s): G89.28 - OTHER CHRONIC POSTPROCEDURAL PAIN Impression/Plan Impression/Plan: DISPO maintain as inpatient full code Discharge planning: f/u [facility] [place] [facility] 7-10 days following hospital discharge. -Will follow. Visit type - Emergency Visit Emergency Visit: Yes ED Registration Date: 11/11/18 Care time: The patient presented to the Emergency Department on the above date and was hospitalized for further evaluation of their emergent condition. - New Patient This patient is new to me today: No - Critical Care Critical Care patient: No - Discharge Referral Referred to [facility] No
[2018-11-17 08:09] LABS: BILIRUBIN,TOTAL 0.3 mg/dL (0.2-1); BLOOD UREA NITROGEN 17.3 mg/dL (7-18); CALCIUM 8.6 mg/dL (8.5-10.1); CREATININE 0.9 mg/dL (0.55-1.3); POTASSIUM 4.1 mmol/L (3.5-5.1); TOT PROT 5.4 g/dl (6.4-8.2)
[2018-11-17] MEDS ORDERED: PT OWN MED DRAWER 7, Y5N ONE ×5 (08:14→17:50)
--- NOTE | 2018-11-17 08:46 | OP ---
DATE OF OPERATION: 11/12/2018 PREOPERATIVE DIAGNOSIS: Superficial wound sepsis following a left total knee arthroplasty. POSTOPERATIVE DIAGNOSIS: Superficial wound sepsis following a left total knee arthroplasty. OPERATION PERFORMED: Incision and drainage, debridement of skin and soft tissue with insertion of wound vacuum assisted closure. SURGEONS: Rodolfo Rea MD; Rupert Rea MD DESCRIPTION OF PROCEDURE: Patient correctly identified, brought to the operating room. Left lower extremity was prepped and draped in the routine manner with Betadine scrub solution, wiped off with alcohol. DuraPrep applied. The draining sinus noted on the anterior aspect of the mid-section of the wound. The entire wound was opened and necrotic subcutaneous fat noted. This was debrided using rongeurs as well as appropriate knives. The tissues were lavaged with 5 L of saline. Cultures were taken for microscopy, culture and sensitivity. Once the wound appeared to be healthy, a wound VAC was applied. The suction device working once the sealed component of the procedure performed. A knee immobilizer applied. No complications. MD MITCH Castro/[id number]
[2018-11-17] MEDS: DOCUSATE SODIUM 100 MG CAPSULE (FP) PO SCH ×2 (09:15→21:39)
[2018-11-17] MEDS: LISINOPRIL 10 MG TABLET (FP) PO SCH (09:15)
[2018-11-17] MEDS: PANTOPRAZOLE 40 MG TABLET (FP) PO SCH (09:16)
[2018-11-17] MEDS: amLODIPine BESYLATE 5 MG TABLET (FP) PO SCH (09:16)
[2018-11-17] MEDS: ASPIRIN COATED 81 MG TABLET.EC PO SCH ×2 (09:16→21:37)
[2018-11-17] MEDS: SENNOSIDES/DOCUSATE COMBO (SENNA PLUS) TABLET (UD) PO SCH ×2 (09:17→21:39)
--- NOTE | 2018-11-17 09:21 | OP ---
DATE OF OPERATION: DATE OF DICTATION: 11/16/2018 SURGEONS: Rodolfo Rea MD, Rupert Rea MD ANESTHESIA: Spinal. PREOPERATIVE DIAGNOSIS: Septic wound for removal of wound vacuum-assisted closure and delayed primary closure. POSTOPERATIVE DIAGNOSIS: Septic wound for removal of wound vacuum-assisted closure and delayed primary closure. OPERATION PERFORMED: Removal of wound vacuum-assisted closure, incision and drainage, washout of wound and associated delayed primary closure. DESCRIPTION OF PROCEDURE: Patient correctly identified. Brought to the operating room. Left lower extremity was prepped and draped in the routine manner with Betadine scrub solution, wiped off with alcohol, DuraPrep applied. The sealant of the wound VAC and entire wound VAC sponge removed. The tissues appeared healthy, granulating tissue. It was elected to go ahead with delayed primary closure based on judgment of the tissue quality accordingly. Cultures were taken of the wound, and repeat incision, drainage, washout, and gentle sponging of the tissues with Betadine scrub to rid the tissues of biofilm performed. After this thorough lavage and noticing that all tissue was healthy, residual amount of fibrinous material was debrided, and the wounds were closed as follows: 1. Deep 2-0 nylon vertical mattress sutures. 2. Interrupted shiloh between the nylon sutures. A bulky, wooly dressing applied. A knee immobilizer applied. Plan for intravenous antibiotics for at least 72 hours. Wound inspection will be performed. If all is healing well and dry, patient will be discharged but to keep the knee immobilizer in situ for 3 weeks. MD MITCH Castro/[id number]
[2018-11-17] MEDS: BUSPIRONE HCL 10 MG, BUSPIRONE HCL 5 MG PO SCH ×2 (09:26→21:39)
--- NOTE | 2018-11-17 10:13 | PN ---
Progress Note (short form) - Note Progress Note: 63F s/p I&D superficial LEFT knee wound POD #0. Apyrexial Pain anterior knee not much different from before -Pain control. -DVT PPx: -Chemical: [id number] PO BID x 6 weeks only. -Mechanical: CAPRICE's, SCD's. -Incentive spirometry q15 min. -PT/OT/Rehab, OOB. -WBAT LLE; no left knee range of motion. -Left knee immobilizer in place. No NVD Labs No elevation of WCC -f/u OR left knee wound cultures. -Continue IV antibiotics. -f/u AM labs. -Care per medical hospitalist team & ID teams. -Discharge planning: f/u [facility] [place] [facility] 7-10 days following hospital discharge. -Will follow. Rodolfo Rea MD (Orthopaedic Surgery).
[2018-11-17] MEDS: VENLAFAXINE HCL 75 MG E.R. CAPSULES (FP) PO SCH (12:24)
[2018-11-17 12:27] LABS: PLATELET COUNT 371 K/MM3 (134-434)
[2018-11-17] MEDS: VANCOMYCIN HCL 1,500 MG in DEXTROSE 5%-WATER - 500 ML IVPB SCH (13:49)
[2018-11-17] MEDS: oxyCODONE HCL 10 MG SUSTAINED ACTING TABLET PO SCH ×2 (15:10→21:37)
[2018-11-18] MEDS ORDERED: DEXTROSE 5%-WATER - 50 ML IVPB ONE ×3 (01:27→17:35)
[2018-11-18] MEDS ORDERED: PIPERACILLIN/TAZOBACTAM 3.375 GM VIAL IVPB ONE ×3 (01:27→17:35)
[2018-11-18] MEDS: oxyCODONE HCL 5 MG TABLET PO PRN ×4 (01:53→16:00)
[2018-11-18] MEDS: PIPERACILLIN/TAZOB 3.375 GM 3.375 GM in DEXTROSE 5%-WATER - 50 ML IVPB SCH ×3 (01:54→17:51)
[2018-11-18] MEDS: GABAPENTIN 300 MG CAPSULE (FP) PO SCH ×3 (06:09→23:05)
--- NOTE | 2018-11-18 06:55 | PN ---
Progress Note, Physician Chief Complaint: s/p debridement left hip wound with primary closure History of Present Illness: under spinal anesthesia post op day one - Current Medication List Current Medications: Active Medications Al Hydroxide/Mg Hydroxide (Mylanta Oral Suspension -) 30 ml PO Q4H PRN PRN Reason: DYSPEPSIA Amlodipine Besylate (Norvasc -) 5 mg PO DAILY [facility] Last Admin: 11/17/18 09:16 Dose: 5 mg Aspirin (Ecotrin -) 81 mg PO BID [facility] Last Admin: 11/17/18 21:37 Dose: 81 mg Buspirone HCl 10 mg/ Buspirone (HCl 5 mg) 15 mg PO BID [facility] Last Admin: 11/17/18 21:39 Dose: 15 mg Docusate Sodium (Colace -) 100 mg PO BID [facility] Last Admin: 11/17/18 21:39 Dose: Not Given Gabapentin (Neurontin -) 300 mg PO TID [facility] Last Admin: 11/18/18 06:09 Dose: 300 mg Piperacillin Sod/Tazobactam (Sod 3.375 gm/ Dextrose) 50 mls @ 100 mls/hr IVPB Q8H-IV [facility]; Protocol Last Admin: 11/18/18 01:54 Dose: 100 mls/hr Lisinopril (Prinivil) 10 mg PO DAILY [facility] Last Admin: 11/17/18 09:15 Dose: 10 mg Magnesium Hydroxide (Milk Of Magnesia -) 30 ml PO PRN PRN PRN Reason: CONSTIPATION Ondansetron HCl (Zofran Injection) 4 mg IVPUSH Q6H PRN PRN Reason: NAUSEA Ondansetron HCl (Zofran Injection) 4 mg IVPUSH Q6H PRN PRN Reason: NAUSEA AND/OR VOMITING Oxycodone HCl (Roxicodone -) 5 mg PO Q6H PRN PRN Reason: PAIN LEVEL 4 - 6 Last Admin: 11/18/18 01:53 Dose: 5 mg Oxycodone HCl (Roxicodone -) 10 mg PO Q6H PRN PRN Reason: PAIN LEVEL 7 - 10 Last Admin: 11/18/18 01:53 Dose: 10 mg Oxycodone HCl (Oxycontin -) 10 mg PO BID [facility] Last Admin: 11/17/18 21:37 Dose: 10 mg Pantoprazole Sodium (Protonix -) 40 mg PO DAILY [facility] Last Admin: 11/17/18 09:16 Dose: 40 mg Promethazine HCl (Phenergan Injection -) 12.5 mg IVPUSH Q6H PRN PRN Reason: NAUSEA-FOR RESCUE AFTER 15 MIN Senna/Docusate Sodium (Pericolace -) 2 tablet PO BID [facility] Last Admin: 11/17/18 21:39 Dose: Not Given Venlafaxine HCl (Effexor Xr -) 150 mg PO DAILY@1200 [facility] Last Admin: 11/17/18 12:24 Dose: 150 mg - Objective Vital Signs: Vital Signs Temperature 97.9 F 11/17/18 22:00 Pulse Rate 73 11/17/18 22:00 Respiratory Rate 20 11/17/18 22:00 Blood Pressure 133/69 11/17/18 22:00 O2 Sat by Pulse Oximetry (%) 98 11/17/18 09:00 Constitutional: Yes: Well Nourished Cardiovascular: Yes: WNL Respiratory: Yes: WNL Gastrointestinal: Yes: WNL Labs: CBC, BMP 11/17/18 07:15 11/17/18 07:15 INR, PTT INR 1.02 (0.83-1.09) 11/12/18 06:00 Assessment/Plan No adverse anesthetic events, patient complaining of pain, was restarted on oxycontin. Oxycodone ordered for Q6h prn, would recommend dosing Q4H as the pain control does not last the full 6 hours. Otherwise dept of anesthesia will sign off care at this time
[2018-11-18 07:50] LABS: EOS % 5.5 % (0-4.5); HEMATOCRIT 32.4 % (32.4-45.2); HEMOGLOBIN 10.6 GM/dL (10.7-15.3); LYMPH % 21.1 % (8-40); MCH 30.7 pg (25.7-33.7); MCHC 32.7 g/dl (32.0-36.0); MEAN PLT VOLUME 9.4 fl (7.5-11.1); MONO % 7.5 % (3.8-10.2); NEUT % 64.9 % (42.8-82.8); RBC 3.45 M/mm3 (3.60-5.2); RDW 16.4 % (11.6-15.6); WHITE BLOOD COUNT 9.9 K/mm3 (4.0-10.0)
[2018-11-18 07:51] LABS: INR 0.9 (0.83-1.09); PROTHROMBIN TIME (PATIENT) 10.6 SEC (9.7-13.0)
[2018-11-18 08:10] LABS: ALBUMIN 3.1 g/dl (3.4-5.0); BILIRUBIN,TOTAL 0.3 mg/dL (0.2-1); BLOOD UREA NITROGEN 19.2 mg/dL (7-18); CALCIUM 9.1 mg/dL (8.5-10.1); CREATININE 1.1 mg/dL (0.55-1.3); MAGNESIUM 2.1 mg/dL (1.8-2.4); POTASSIUM 4.4 mmol/L (3.5-5.1); TOT PROT 5.8 g/dl (6.4-8.2)
--- NOTE | 2018-11-18 09:01 | PN ---
Progress Note, Physician Chief Complaint: Left Knee pain History of Present Illness: 63 year old woman with a history of HTN, depression, anxiety, DJD who underwent left total knee arthroplasty with Dr. Rea on October 24 at [place]. She reports redness and pain of the left knee since surgery. She saw Dr. Rea on November 01. On November 09, - Current Medication List Current Medications: Active Medications Al Hydroxide/Mg Hydroxide (Mylanta Oral Suspension -) 30 ml PO Q4H PRN PRN Reason: DYSPEPSIA Amlodipine Besylate (Norvasc -) 5 mg PO DAILY [facility] Last Admin: 11/17/18 09:16 Dose: 5 mg Aspirin (Ecotrin -) 81 mg PO BID [facility] Last Admin: 11/17/18 21:37 Dose: 81 mg Buspirone HCl 10 mg/ Buspirone (HCl 5 mg) 15 mg PO BID [facility] Last Admin: 11/17/18 21:39 Dose: 15 mg Docusate Sodium (Colace -) 100 mg PO BID [facility] Last Admin: 11/17/18 21:39 Dose: Not Given Gabapentin (Neurontin -) 300 mg PO TID [facility] Last Admin: 11/18/18 06:09 Dose: 300 mg Piperacillin Sod/Tazobactam (Sod 3.375 gm/ Dextrose) 50 mls @ 100 mls/hr IVPB Q8H-IV [facility]; Protocol Last Admin: 11/18/18 01:54 Dose: 100 mls/hr Lisinopril (Prinivil) 10 mg PO DAILY [facility] Last Admin: 11/17/18 09:15 Dose: 10 mg Magnesium Hydroxide (Milk Of Magnesia -) 30 ml PO PRN PRN PRN Reason: CONSTIPATION Ondansetron HCl (Zofran Injection) 4 mg IVPUSH Q6H PRN PRN Reason: NAUSEA Ondansetron HCl (Zofran Injection) 4 mg IVPUSH Q6H PRN PRN Reason: NAUSEA AND/OR VOMITING Oxycodone HCl (Roxicodone -) 5 mg PO Q6H PRN PRN Reason: PAIN LEVEL 4 - 6 Last Admin: 11/18/18 01:53 Dose: 5 mg Oxycodone HCl (Roxicodone -) 10 mg PO Q6H PRN PRN Reason: PAIN LEVEL 7 - 10 Last Admin: 11/18/18 08:32 Dose: 10 mg Oxycodone HCl (Oxycontin -) 10 mg PO BID [facility] Last Admin: 11/17/18 21:37 Dose: 10 mg Pantoprazole Sodium (Protonix -) 40 mg PO DAILY [facility] Last Admin: 11/17/18 09:16 Dose: 40 mg Promethazine HCl (Phenergan Injection -) 12.5 mg IVPUSH Q6H PRN PRN Reason: NAUSEA-FOR RESCUE AFTER 15 MIN Senna/Docusate Sodium (Pericolace -) 2 tablet PO BID [facility] Last Admin: 11/17/18 21:39 Dose: Not Given Venlafaxine HCl (Effexor Xr -) 150 mg PO DAILY@1200 [facility] Last Admin: 11/17/18 12:24 Dose: 150 mg - Objective Vital Signs: Vital Signs Temperature 97.4 F L 11/18/18 07:22 Pulse Rate 65 11/18/18 07:22 Respiratory Rate 20 11/18/18 07:22 Blood Pressure 111/65 11/18/18 07:22 O2 Sat by Pulse Oximetry (%) 98 11/17/18 09:00 Elderly F comfortable HEENT: Mm moist, no anemia, PERRLA EOMI NECK: No JVD No Bruit CHEST: CTA B/L CVS: s1S2 R no m/g/r ABD: Obese non teder Bs + EXT: Left knee S/P Surgery in splint DIRECTOR VACCINE: AOX# non focal Labs: CBC, BMP 11/18/18 06:02 11/18/18 06:02 INR, PTT INR 0.90 (0.83-1.09) 11/18/18 06:02 Problem List - Problems (1) Status post incision and drainage Assessment/Plan: Left knee post THR infection grew Polymicrobial on IV Zosyn will F/U ortho and ID recommendations Code(s): Z98.890 - OTHER SPECIFIED POSTPROCEDURAL STATES (2) HTN (hypertension) Assessment/Plan: Well controlled cont all home meds Code(s): I10 - ESSENTIAL (PRIMARY) HYPERTENSION (3) Anxiety Assessment/Plan: Cont home meds Code(s): F41.9 - ANXIETY DISORDER, UNSPECIFIED (4) Morbid obesity Assessment/Plan: ult Code(s): E66.01 - MORBID (SEVERE) OBESITY DUE TO EXCESS CALORIES (5) Total knee replacement status Assessment/Plan: Cont PT Code(s): Z96.659 - PRESENCE OF UNSPECIFIED ARTIFICIAL KNEE JOINT
[2018-11-18] MEDS ORDERED: PT OWN MED DRAWER 7, Y5N ONE ×2 (09:27→21:39)
[2018-11-18] MEDS: PANTOPRAZOLE 40 MG TABLET (FP) PO SCH (09:32)
[2018-11-18] MEDS: LISINOPRIL 10 MG TABLET (FP) PO SCH (09:33)
[2018-11-18] MEDS: ASPIRIN COATED 81 MG TABLET.EC PO SCH ×2 (09:33→23:05)
[2018-11-18] MEDS: DOCUSATE SODIUM 100 MG CAPSULE (FP) PO SCH ×2 (09:33→23:09)
[2018-11-18] MEDS: amLODIPine BESYLATE 5 MG TABLET (FP) PO SCH (09:33)
[2018-11-18] MEDS: oxyCODONE HCL 10 MG SUSTAINED ACTING TABLET PO SCH ×2 (09:34→23:05)
[2018-11-18] MEDS: BUSPIRONE HCL 10 MG, BUSPIRONE HCL 5 MG PO SCH ×2 (09:34→23:04)
[2018-11-18] MEDS: SENNOSIDES/DOCUSATE COMBO (SENNA PLUS) TABLET (UD) PO SCH ×2 (09:35→23:07)
--- NOTE | 2018-11-18 12:00 | PN ---
Progress Note (short form) - Note Progress Note: POD#2 Feeling well apyrexial Minimal incisional tenderness. Wound inspection Dry no clinically significant cellulitis Wound redressed with dry dressing Knee immobilzer removed cutting into heal. Pt understands to limit flexion PLAN keep for 24 hrs for IV antibiotics D/c home with oral antibiotics PT mobilization of the knee once consolidated healing Pain mx
[2018-11-18 13:44] LABS: PLATELET COUNT 405 K/MM3 (134-434)
[2018-11-18] MEDS: VENLAFAXINE HCL 75 MG E.R. CAPSULES (FP) PO SCH (14:39)
[2018-11-19] MEDS ORDERED: PIPERACILLIN/TAZOBACTAM 3.375 GM VIAL IVPB ONE ×3 (01:42→17:03)
[2018-11-19] MEDS ORDERED: DEXTROSE 5%-WATER - 50 ML IVPB ONE ×3 (01:42→17:03)
[2018-11-19] MEDS: PIPERACILLIN/TAZOB 3.375 GM 3.375 GM in DEXTROSE 5%-WATER - 50 ML IVPB SCH ×3 (01:47→17:32)
[2018-11-19] MEDS: oxyCODONE HCL 5 MG TABLET PO PRN ×3 (01:48→17:45)
[2018-11-19] MEDS: GABAPENTIN 300 MG CAPSULE (FP) PO SCH ×3 (06:18→22:20)
[2018-11-19 07:11] LABS: BASO % 1.9 % (0-2.0); EOS % 9.5 % (0-4.5); HEMATOCRIT 33.6 % (32.4-45.2); HEMOGLOBIN 11.1 GM/dL (10.7-15.3); LYMPH % 27.2 % (8-40); MCH 30.9 pg (25.7-33.7); MCHC 33.1 g/dl (32.0-36.0); MEAN CELL VOLUME 93.3 fl (80-96); MEAN PLT VOLUME 9.1 fl (7.5-11.1); MONO % 8.4 % (3.8-10.2); PLATELET COUNT 297 K/MM3 (134-434); RBC 3.61 M/mm3 (3.60-5.2); RDW 16.3 % (11.6-15.6); WHITE BLOOD COUNT 8.2 K/mm3 (4.0-10.0)
[2018-11-19 07:40] LABS: ALBUMIN 3.3 g/dl (3.4-5.0); BILIRUBIN,TOTAL 0.4 mg/dL (0.2-1); BLOOD UREA NITROGEN 17.3 mg/dL (7-18); CALCIUM 9.3 mg/dL (8.5-10.1); POTASSIUM 4.2 mmol/L (3.5-5.1); TOT PROT 5.8 g/dl (6.4-8.2)
[2018-11-19 07:59] LABS: INR 0.93 (0.83-1.09)
--- NOTE | 2018-11-19 09:51 | PN ---
Progress Note, Physician Chief Complaint: Left Knee pain but ambulating History of Present Illness: 63 year old woman with a history of HTN, depression, anxiety, DJD who underwent left total knee arthroplasty with Dr. Rea on October 24 at [place]. She reports redness and pain of the left knee since surgery. She saw Dr. Rea on November 01. On November 09, underwent wound wash on IV abx as per ID recommendation POD3 - Current Medication List Current Medications: Active Medications Al Hydroxide/Mg Hydroxide (Mylanta Oral Suspension -) 30 ml PO Q4H PRN PRN Reason: DYSPEPSIA Amlodipine Besylate (Norvasc -) 5 mg PO DAILY [facility] Last Admin: 11/18/18 09:33 Dose: 5 mg Aspirin (Ecotrin -) 81 mg PO BID [facility] Last Admin: 11/18/18 23:05 Dose: 81 mg Buspirone HCl 10 mg/ Buspirone (HCl 5 mg) 15 mg PO BID [facility] Last Admin: 11/18/18 23:04 Dose: 15 mg Docusate Sodium (Colace -) 100 mg PO BID [facility] Last Admin: 11/18/18 23:09 Dose: Not Given Gabapentin (Neurontin -) 300 mg PO TID [facility] Last Admin: 11/19/18 06:18 Dose: 300 mg Piperacillin Sod/Tazobactam (Sod 3.375 gm/ Dextrose) 50 mls @ 100 mls/hr IVPB Q8H-IV [facility]; Protocol Last Admin: 11/19/18 01:47 Dose: 100 mls/hr Lisinopril (Prinivil) 10 mg PO DAILY [facility] Last Admin: 11/18/18 09:33 Dose: 10 mg Magnesium Hydroxide (Milk Of Magnesia -) 30 ml PO PRN PRN PRN Reason: CONSTIPATION Ondansetron HCl (Zofran Injection) 4 mg IVPUSH Q6H PRN PRN Reason: NAUSEA Ondansetron HCl (Zofran Injection) 4 mg IVPUSH Q6H PRN PRN Reason: NAUSEA AND/OR VOMITING Oxycodone HCl (Roxicodone -) 5 mg PO Q6H PRN PRN Reason: PAIN LEVEL 4 - 6 Last Admin: 11/18/18 01:53 Dose: 5 mg Oxycodone HCl (Roxicodone -) 10 mg PO Q6H PRN PRN Reason: PAIN LEVEL 7 - 10 Last Admin: 11/19/18 07:59 Dose: 10 mg Oxycodone HCl (Oxycontin -) 10 mg PO BID [facility] Last Admin: 11/18/18 23:05 Dose: 10 mg Pantoprazole Sodium (Protonix -) 40 mg PO DAILY [facility] Last Admin: 11/18/18 09:32 Dose: 40 mg Promethazine HCl (Phenergan Injection -) 12.5 mg IVPUSH Q6H PRN PRN Reason: NAUSEA-FOR RESCUE AFTER 15 MIN Senna/Docusate Sodium (Pericolace -) 2 tablet PO BID [facility] Last Admin: 11/18/18 23:07 Dose: Not Given Venlafaxine HCl (Effexor Xr -) 150 mg PO DAILY@1200 [facility] Last Admin: 11/18/18 14:39 Dose: 150 mg - Objective Vital Signs: Vital Signs Temperature 98.5 F 11/19/18 06:00 Pulse Rate 56 L 11/19/18 06:00 Respiratory Rate 20 11/19/18 06:00 Blood Pressure 102/59 L 11/19/18 06:00 O2 Sat by Pulse Oximetry (%) 99 11/18/18 21:00 Elderly F comfortable HEENT: Mm moist, no anemia, PERRLA EOMI NECK: No JVD No Bruit CHEST: CTA B/L CVS: s1S2 R no m/g/r ABD: Obese non teder Bs + EXT: Left knee S/P Surgery in splint INSULATION INSPECTOR: AOX3 non focal Labs: CBC, BMP 11/19/18 06:45 11/19/18 06:45 INR, PTT INR 0.93 (0.83-1.09) 11/19/18 06:45 Problem List - Problems (1) Status post incision and drainage Assessment/Plan: Left knee post THR infection grew Polymicrobial on IV Zosyn + Vancomycin will F /U ortho and ID recommendations Code(s): Z98.890 - OTHER SPECIFIED POSTPROCEDURAL STATES (2) HTN (hypertension) Assessment/Plan: Well controlled cont all home meds Code(s): I10 - ESSENTIAL (PRIMARY) HYPERTENSION (3) Anxiety Assessment/Plan: Cont home meds Code(s): F41.9 - ANXIETY DISORDER, UNSPECIFIED (4) Morbid obesity Assessment/Plan: ult Code(s): E66.01 - MORBID (SEVERE) OBESITY DUE TO EXCESS CALORIES (5) Total knee replacement status Assessment/Plan: Cont PT Code(s): Z96.659 - PRESENCE OF UNSPECIFIED ARTIFICIAL KNEE JOINT
[2018-11-19] MEDS: VENLAFAXINE HCL 75 MG E.R. CAPSULES (FP) PO SCH (11:20)
[2018-11-19] MEDS: oxyCODONE HCL 10 MG SUSTAINED ACTING TABLET PO SCH ×2 (11:21→22:19)
[2018-11-19] MEDS: DOCUSATE SODIUM 100 MG CAPSULE (FP) PO SCH ×2 (11:22→22:20)
[2018-11-19] MEDS: BUSPIRONE HCL 10 MG, BUSPIRONE HCL 5 MG PO SCH ×2 (11:22→22:20)
[2018-11-19] MEDS: SENNOSIDES/DOCUSATE COMBO (SENNA PLUS) TABLET (UD) PO SCH ×2 (11:23→22:23)
[2018-11-19] MEDS: amLODIPine BESYLATE 5 MG TABLET (FP) PO SCH (11:23)
[2018-11-19] MEDS: ASPIRIN COATED 81 MG TABLET.EC PO SCH ×2 (11:23→22:20)
[2018-11-19] MEDS: LISINOPRIL 10 MG TABLET (FP) PO SCH (11:24)
[2018-11-19] MEDS: PANTOPRAZOLE 40 MG TABLET (FP) PO SCH (11:31)
--- NOTE | 2018-11-19 18:11 | PN ---
Progress Note (short form) - Note Progress Note: POD#3 Feeling well apyrexial Minimal incisional tenderness. Wound inspection Dry no clinically significant cellulitis Wound redressed with dry dressing Knee immobilzer removed cutting into heal. Pt understands to limit flexion PLAN keep for 24 hrs for IV antibiotics D/c home with oral antibiotics PT mobilization of the knee once consolidated healing Pain mx
[2018-11-20] MEDS ORDERED: PIPERACILLIN/TAZOBACTAM 3.375 GM VIAL IVPB ONE ×2 (01:10→08:10)
[2018-11-20] MEDS ORDERED: DEXTROSE 5%-WATER - 50 ML IVPB ONE ×2 (01:10→08:10)
[2018-11-20] MEDS: oxyCODONE HCL 5 MG TABLET PO PRN ×2 (02:09→14:48)
[2018-11-20] MEDS: PIPERACILLIN/TAZOB 3.375 GM 3.375 GM in DEXTROSE 5%-WATER - 50 ML IVPB SCH ×2 (02:09→09:20)
[2018-11-20] MEDS: GABAPENTIN 300 MG CAPSULE (FP) PO SCH ×2 (05:45→13:38)
[2018-11-20 08:43] LABS: ALBUMIN 2.9 g/dl (3.4-5.0); BILIRUBIN,TOTAL 0.3 mg/dL (0.2-1); BLOOD UREA NITROGEN 21.4 mg/dL (7-18); CALCIUM 8.8 mg/dL (8.5-10.1); MAGNESIUM 2.6 mg/dL (1.8-2.4); POTASSIUM 4.1 mmol/L (3.5-5.1)
[2018-11-20 08:50] LABS: BASO % 1.4 % (0-2.0); EOS % 13.4 % (0-4.5); HEMATOCRIT 29.9 % (32.4-45.2); HEMOGLOBIN 9.8 GM/dL (10.7-15.3); LYMPH % 17.4 % (8-40); MCH 30.9 pg (25.7-33.7); MCHC 32.7 g/dl (32.0-36.0); MEAN CELL VOLUME 94.5 fl (80-96); MONO % 11.7 % (3.8-10.2); NEUT % 56.1 % (42.8-82.8); PLATELET COUNT 221 K/MM3 (134-434); RBC 3.17 M/mm3 (3.60-5.2); RDW 16.3 % (11.6-15.6); WHITE BLOOD COUNT 7.6 K/mm3 (4.0-10.0)
[2018-11-20] MEDS: LISINOPRIL 10 MG TABLET (FP) PO SCH (09:16)
[2018-11-20] MEDS: amLODIPine BESYLATE 5 MG TABLET (FP) PO SCH (09:16)
[2018-11-20] MEDS: PANTOPRAZOLE 40 MG TABLET (FP) PO SCH (09:17)
[2018-11-20] MEDS: oxyCODONE HCL 10 MG SUSTAINED ACTING TABLET PO SCH (09:17)
[2018-11-20] MEDS: ASPIRIN COATED 81 MG TABLET.EC PO SCH (09:17)
[2018-11-20] MEDS: VENLAFAXINE HCL 75 MG E.R. CAPSULES (FP) PO SCH ×2 (09:17→13:37)
[2018-11-20] MEDS: BUSPIRONE HCL 10 MG, BUSPIRONE HCL 5 MG PO SCH (09:19)
[2018-11-20] MEDS: SENNOSIDES/DOCUSATE COMBO (SENNA PLUS) TABLET (UD) PO SCH (09:20)
[2018-11-20] MEDS: DOCUSATE SODIUM 100 MG CAPSULE (FP) PO SCH (09:28)
--- NOTE | 2018-11-20 13:12 | DS ---
Physical Exam: SUBJECTIVE: Patient seen and examined at the bedside. feels well, wants to go home and follow up with Dr. Rea as an outpatient. OBJECTIVE: Vital Signs Period Temp Pulse Resp BP Sys/Sheth Pulse Ox Last 24 Hr 97.4 F-98.8 F 53-91 18-20 97-145/55-67 98-98 PHYSICAL EXAM GENERAL: The patient is awake, alert, and fully oriented, in no acute distress. HEAD: Normal with no signs of trauma. EYES: PERRL, extraocular movements intact, sclera anicteric, conjunctiva clear. ENT: Ears normal, nares patent, oropharynx clear without exudates, moist mucous membranes. NECK: Trachea midline, full range of motion, supple. LUNGS: Breath sounds equal, clear to auscultation bilaterally, no wheezes, no crackles, no accessory muscle use. HEART: Regular rate and rhythm ABDOMEN: Soft, nontender, nondistended, normoactive bowel sounds, no guarding, no rebound, no hepatosplenomegaly, no masses. EXTREMITIES: left leg immobilizer NEUROLOGICAL: Normal speech, gait not observed. PSYCH: Normal mood, normal affect. LABS Laboratory Results - last 24 hr 11/20/18 11/20/18 07:22 07:22 WBC 7.6 RBC 3.17 L Hgb 9.8 L Hct 29.9 L MCV 94.5 MCH 30.9 MCHC 32.7 RDW 16.3 H Plt Count 221 D MPV 10.0 Absolute Neuts (auto) 4.3 Neutrophils % 56.1 Lymphocytes % 17.4 D Monocytes % 11.7 H Eosinophils % 13.4 H Basophils % 1.4 Nucleated RBC % 0 Sodium 142 Potassium 4.1 Chloride 108 H Carbon Dioxide 29 Anion Gap 5 L BUN 21.4 H Creatinine 1.0 Est GFR (CKD-EPI)AfAm 68.95 Est GFR (CKD-EPI)NonAf 59.49 Random Glucose 73 L Calcium 8.8 Magnesium 2.6 H Total Bilirubin 0.3 AST 17 ALT 29 Alkaline Phosphatase 95 Total Protein 5.0 L Albumin 2.9 L HOSPITAL COURSE: Date of Admission:11/11/18 Date of Discharge: 11/20/18 Patient was recently discharged from inpatient rehab. Noticed increased swelling and pain in left knee. Stated there was a scab near incision that fell off and then began to drain purulent fluid. Admitted through ED for I&D with Dr Rea. Patient is a 63 year-old female with a past medical history of hypertension, depression/anxiety, and OA s/p left total knee arthroplasty on 10/24/[address] Rodolfo Rea. Patient was transferred from [facility] by the request of Dr. Rea for evaluation of her left knee pain. Patient noticed drainage, redness, and erythema from her left knee at the site of surgery and came here for surgical intervention. POD#3 Feeling well, has knee immobilzer. Pt understands to limit flexion and will follow up with Dr. Rea Continue Augmentin 875mg BID x 10 days Pain medications to be called into patient.s pharmacy by Dr. Rea office ( office called and informed) Discharge home. Minutes to complete discharge: 60 Discharge Summary Reason For Visit: SEPTIC JOINT LT KNEE Current Active Problems Pain, postoperative, acute (Acute) Pain, postoperative, chronic (Acute) Prophylactic measure (Acute) Status post incision and drainage (Acute) Condition: Improved - Instructions Diet, Activity, Other Instructions: Mrs Mills: You will be discharged home today with a follow up with Dr. Rea. Here are our recommendations: Take Aspirin 81mg TWICE PER DAY for 6 weeks total only. Continue using the incentive sprirometer No Left Knee range of motion and keep immobilizer on and in place Please follow up with Dr. [facility] [place] [facility] 7-10 days following hospital discharge. You will be sent home to continue Augmentin 875mg TWICE per day starting today for a total of 10 DAYS. Take a probiotic while on the antibiotics ( BACID called into your pharmacy Thank you for allowing us to care for you. Thank you Referrals: Rodolfo Rea MD [Staff Physician] - Disposition: HOME - Home Medications Comprehensive Discharge Medication List: Ambulatory Orders Amlodipine Besylate [Norvasc -] 5 mg PO DAILY 10/19/18 Buspirone HCl [Buspar -] 15 mg PO BID 10/19/18 Lisinopril 10 mg PO DAILY 10/19/18 Venlafaxine HCl ER [Effexor Xr -] 150 mg PO DAILY 10/19/18 Acetaminophen [Tylenol Extra Strength] 1,000 mg PO Q8H PRN #0 tab 10/26/18 Aspirin [ASA -] 81 mg PO BID #90 tab.chew 10/26/18 Docusate Sodium [Colace -] 100 mg PO BID #28 capsule 10/26/18 Gabapentin [Neurontin -] 300 mg PO TID capsule 10/26/18 Latanoprost 0.005% Eye Drops [Xalatan 0.005% Eye Drops -] 11/13/18 Aspirin Coated [Ecotrin -] 81 mg PO BID #60 tablet.ec 11/20/18 Buspirone HCl [Buspar -] 15 mg PO BID tablet 11/20/18 Buspirone HCl [Buspar -] 15 mg PO BID tablet 11/20/18 Sennosides/Docusate Sodium [Pericolace -] 2 tablet PO BID tablet 11/20/18 Problem List - Problems (1) Total knee replacement status Code(s): Z96.659 - PRESENCE OF UNSPECIFIED ARTIFICIAL KNEE JOINT (2) HTN (hypertension) Code(s): I10 - ESSENTIAL (PRIMARY) HYPERTENSION (3) Morbid obesity Code(s): E66.01 - MORBID (SEVERE) OBESITY DUE TO EXCESS CALORIES (4) Prophylactic measure Code(s): Z29.9 - ENCOUNTER FOR PROPHYLACTIC MEASURES, UNSPECIFIED This patient is new to me today: No Emergency Visit: Yes ED Registration Date: 11/11/18 Care time: The patient presented to the Emergency Department on the above date and was hospitalized for further evaluation of their emergent condition. Critical Care patient: No - Discharge Referral Referred to [facility] Med [facility].C.: No
--- NOTE | 2018-11-20 14:22 | PN ---
Progress Note, Physician History of Present Illness: OOB IN CHAIR NO C/O KNEE PAIN REMAINS AFEBRILE WBC WNL CULTURES PENDING ESR 23 CRP 0.6 - Current Medication List Current Medications: Active Medications Al Hydroxide/Mg Hydroxide (Mylanta Oral Suspension -) 30 ml PO Q4H PRN PRN Reason: DYSPEPSIA Amlodipine Besylate (Norvasc -) 5 mg PO DAILY [facility] Last Admin: 11/20/18 09:16 Dose: 5 mg Amoxicillin/Clavulanate Potassium (Augmentin - 875mg Tablet) 1 tab PO BID@0800, 1730 [facility] Aspirin (Ecotrin -) 81 mg PO BID [facility] Last Admin: 11/20/18 09:17 Dose: 81 mg Buspirone HCl 10 mg/ Buspirone (HCl 5 mg) 15 mg PO BID [facility] Last Admin: 11/20/18 09:19 Dose: 15 mg Docusate Sodium (Colace -) 100 mg PO BID [facility] Last Admin: 11/20/18 09:28 Dose: 100 mg Gabapentin (Neurontin -) 300 mg PO TID [facility] Last Admin: 11/20/18 13:38 Dose: 300 mg Lisinopril (Prinivil) 10 mg PO DAILY [facility] Last Admin: 11/20/18 09:16 Dose: 10 mg Magnesium Hydroxide (Milk Of Magnesia -) 30 ml PO PRN PRN PRN Reason: CONSTIPATION Ondansetron HCl (Zofran Injection) 4 mg IVPUSH Q6H PRN PRN Reason: NAUSEA Ondansetron HCl (Zofran Injection) 4 mg IVPUSH Q6H PRN PRN Reason: NAUSEA AND/OR VOMITING Oxycodone HCl (Roxicodone -) 5 mg PO Q6H PRN PRN Reason: PAIN LEVEL 4 - 6 Last Admin: 11/18/18 01:53 Dose: 5 mg Oxycodone HCl (Roxicodone -) 10 mg PO Q6H PRN PRN Reason: PAIN LEVEL 7 - 10 Last Admin: 11/20/18 02:09 Dose: 10 mg Oxycodone HCl (Oxycontin -) 10 mg PO BID [facility] Last Admin: 11/20/18 09:17 Dose: 10 mg Pantoprazole Sodium (Protonix -) 40 mg PO DAILY [facility] Last Admin: 11/20/18 09:17 Dose: 40 mg Promethazine HCl (Phenergan Injection -) 12.5 mg IVPUSH Q6H PRN PRN Reason: NAUSEA-FOR RESCUE AFTER 15 MIN Senna/Docusate Sodium (Pericolace -) 2 tablet PO BID [facility] Last Admin: 11/20/18 09:20 Dose: Not Given Venlafaxine HCl (Effexor Xr -) 150 mg PO DAILY@1200 [facility] Last Admin: 11/20/18 13:37 Dose: Not Given - Objective Vital Signs: Vital Signs Temperature 98.8 F 11/20/18 09:43 Pulse Rate 58 L 11/20/18 09:43 Respiratory Rate 20 11/20/18 09:43 Blood Pressure 145/67 11/20/18 09:43 O2 Sat by Pulse Oximetry (%) 98 11/20/18 09:00 Constitutional: Yes: No Distress Cardiovascular: Yes: Regular Rate and Rhythm, S1, S2 Respiratory: Yes: CTA Bilaterally Extremities: Yes: Other (L KNEE SURGICAL WOUND WITH SUTURES INTACT. NO ERYTHEMA / WARMTH) Labs: CBC, BMP 11/20/18 07:22 11/20/18 07:22 INR, PTT INR 0.93 (0.83-1.09) 11/19/18 06:45 Assessment/Plan S/P I&D SUPERFICIAL L TKR SURGICAL WOUND DAY #9 ZOSYN SUBSTITUTE AUGMENTIN 875MG PO BID 10D OUTPATIENT ORTHO F/U
[2018-11-20 14:38] VITALS: BP 120/68; PULSE 68; TEMP 98.3
[2018-11-20] MEDS ORDERED: AMOX TR/POT CLAV 875MG/125MG TABLETS (FP) PO SCH (17:30)
== END 2018-11-20 15:30 | disposition home or self-care (01) | DRG 863 ==
LOC: J8W 11:30
PROVIDERS: ADMIT Orthopaedic Surgery Orthopaedic Surgery of the Spine; ATTEND Nurse Practitioner Family
PROC: 0H9LXZZ Drainage of Left Lower Leg Skin, External Approach (ICD-10-PCS; principal; 2018-11-12 12:30)
PROC: 0HDLXZZ Extraction of Left Lower Leg Skin, External Approach (ICD-10-PCS; 2018-11-16)
PROC: 3E10X8Z Irrigation of Skin and Mucous Membranes using Irrigating Substance (ICD-10-PCS; 2018-11-16)
DX: T81.49XA Infection following a procedure, other surgical site, initial encounter (principal); Z68.41 Body mass index [BMI] 40.0-44.9, adult; A49.01 Methicillin susceptible Staphylococcus aureus infection, unspecified site; I10 Essential (primary) hypertension; E66.01 Morbid (severe) obesity due to excess calories; Y83.9 Surgical procedure, unspecified as the cause of abnormal reaction of the patient, or of later complication, without mention of misadventure at the time of the procedure; F41.8 Other specified anxiety disorders
CPT/HCPCS: 36415; 71045-TC-FY; 80048; 80053; 81003; 83605; 83735; 84100; 85025; 85027; 85610; 85651; 86140; 86850; 86900; 86901; 87040; 87070; 87077; 87086; 87186; 87205; 93005; 93010; 94010; 94760; 97116-GP; 97161-GP; G0480; J1644; J7030

== ENCOUNTER 2019-02-13 08:00 | Inpatient (IN) | payer OTHER, MEDICARE ==
[2019-02-05 11:39] VITALS: BMI 41.5
[2019-02-13] MEDS ORDERED: TRANEXAMIC ACID 1000 MG/10 ML VIAL IVPUSH ONE (10:03)
[2019-02-13] MEDS ORDERED: VANCOMYCIN 1,500 MG in DEXTROSE 5%-WATER - 500 ML IVPB ONE (10:03)
[2019-02-13] MEDS ORDERED: CEFAZOLIN 2 GM in DEXTROSE 5%-WATER - 50 ML IVPB ONE (10:03)
[2019-02-13] MEDS ORDERED: MIDAZOLAM HCL 2 MG/2 ML SINGLE DOSE VIAL ONE ×3 (10:35→13:25)
[2019-02-13] MEDS ORDERED: BUPIVACAINE LIPOSOME/PF (EXPAREL) 266 MG/20 ML VIAL ONE (10:35)
[2019-02-13] MEDS ORDERED: SODIUM CHLORIDE 0.9% P/F 10 ML VIAL IJ ONE (10:35)
[2019-02-13] MEDS ORDERED: VANCOMYCIN 1,000 MG VIAL (RESTRICTED TO ID ONLY) ONE (11:23)
[2019-02-13] MEDS ORDERED: PROPOFOL 20 ML ONE ×3 (11:24→14:17)
[2019-02-13] MEDS ORDERED: BUPIVACAINE HCL/PF 0.5% (5MG/ML) 10 ML VIAL ONE (11:27)
--- NOTE | 2019-02-13 11:30 | HP ---
History & Physical Update - History History: No Change - Physical Physical: No Change - Assessment Assessment: No Change - Plan Plan: No Change
[2019-02-13] MEDS ORDERED: ceFAZolin SODIUM 1 GM VIAL ONE ×3 (12:14→14:47)
[2019-02-13] MEDS ORDERED: oxyCODONE HCL 5 MG TABLET PO PRN (13:51)
[2019-02-13] MEDS ORDERED: ONDANSETRON 4 MG/2 ML VIAL IVPUSH PRN ×2 (13:51→14:52)
[2019-02-13] MEDS ORDERED: MAGNESIUM HYDROX 2400MG/30ML ORAL SUSPENSION 30 ML CUP PO PRN (14:52)
[2019-02-13] MEDS ORDERED: MAG HYDROX/AL HYDROX/SIMETH 30 ML UNIT-DOSE CUP PO PRN (14:52)
[2019-02-13] MEDS ORDERED: FUROSEMIDE 20 MG TABLET (FP) PO PRN (14:54)
[2019-02-13] MEDS ORDERED: CEFAZOLIN 1 GM/D5W 50 ML IVPB SCH (15:00)
[2019-02-13] MEDS ORDERED: LACTATED RINGERS SOLUTION 1,000 ML IV SCH (15:00)
--- NOTE | 2019-02-13 15:14 | PN ---
Progress Note (short form) - Note Progress Note: 63F s/p RIGHT total knee replacement POD #0. -Pain control. -DVT PPx: -Chemical: ASA 81mg PO BID x 6 weeks post-op. -Mechanical: CAPRICE's, SCD's. -Incentive spirometry q15 min. -PT/OT/Rehab, OOB. -WBAT RLE. -Post-op Ancef x 2 doses. -f/u post-op TOV: 8 hours max. -f/u AM labs. -f/u drain output. -Diet as tolerated. -Care per medical hospitalist team. -Discharge planning: f/u [facility] [place] [facility] 02/21/2019; call for appointment . -Will follow. Rodolfo Rea MD (Orthopaedic Surgery).
--- NOTE | 2019-02-13 15:15 | OP ---
Operative Note - Note: Operative Date: 02/13/19 Pre-Operative Diagnosis: Right knee DJD Operation: Right TKA Implants: [employer]. Femur - 4. Tibia - 3. Poly - 11mm, TS. Patella - 27mm, symmetric Post-Operative Diagnosis: Same as Pre-op Surgeon: Rodolfo Rea Supervisor Communications And Signals: Rupert Rea Anesthesiologist/FLASK HANDLER: Jose Lu Anesthesia: Spinal Specimens Removed: Bone, soft tissue Estimated Blood Loss (mls): 0 Drains & Tubes with Location: 1 x HemoVac Fluid Volume Replaced (mls): 1,100 (Crystalloid) Operative Report Dictated: Yes
[2019-02-13] MEDS ORDERED: ACETAMINOPHEN 325 MG TABLET (FP) ONE (15:24)
[2019-02-13] MEDS: ACETAMINOPHEN 325 MG TABLET (FP) PO SCH ×2 (15:30→23:44)
[2019-02-13] MEDS: oxyCODONE HCL 5 MG TABLET PO PRN ×2 (16:46→21:17)
[2019-02-13] MEDS: LACTATED RINGERS SOLUTION 1,000 ML IV SCH (16:52)
[2019-02-13] MEDS ORDERED: ACETAMINOPHEN 1000 MG/100 ML VIAL (NON FORMULARY) IVPB ONE (17:52)
[2019-02-13] MEDS: HYDROmorphone HCL CARPU-JECT 1 MG/1 ML DISP.SYRIN IVPB PRN (18:12)
--- NOTE | 2019-02-13 19:29 | OP ---
DATE OF OPERATION: 02/13/2019 SURGEON: Rodolfo Rea M.D. EARLY LEARNING TEACHER: Rupert Rea M.D., and Taryn Aparicio PREOPERATIVE DIAGNOSIS: Tricompartment osteoarthritis right knee. POSTOPERATIVE DIAGNOSIS: Tricompartment osteoarthritis right knee. OPERATION PERFORMED: Right posterior stabilized total knee arthroplasty ([place]). ANESTHESIA: Conscious sedation with peripheral nerve block and spinal anesthesia. ANTIBIOTICS GIVEN: 2 g Ancef, 1 g vancomycin preoperative; 1 g Kefzol given at the end of the procedure. OPERATION IN DETAILS: The patient was correctly identified, brought in operating room. Right lower extremity was prepped, free draped in the routine manner with Betadine scrub solution, wiped off with alcohol, DuraPrep applied. Timeout was called. Imaging was available for intraoperative evaluation. With the knee after free draping was performed, the knee was flexed at 40 degrees. An incision was made through the skin, subcutaneous tissue, obesity encountered. The subcutaneous tissue was about 4 inches thick. The incision went straight down to the quadriceps mechanism. The proximal and medial aspect of the soft tissue of the tibia was dissected with sharp dissection off the bone bed. The incision curve from the inferior part of the patella medially to the linea aspera leaving a cuff of 1 inch distal to the medial border of vastus medialis. The epimysium of the vastus medialis was dissected off the muscle. The dissector was taken right to the hiatal canal. The vessels and neurovascular bundle were not seen. We used diathermy to achieve hemostasis throughout this part of the dissection. Suprapatellar pouch was then incised, and the plane deep to the subvastus muscle mass entered with finger dissection and then a blunt hammer placed to sublux the patella laterally. The knee was flexed, externally rotated to reveal severe arthritic changes in this knee throughout. The cruciate ligaments were transected. Homans were placed around the proximal medial aspect of the tibia. The tibial cut was made using the extramedullary jig alignment system of [employer], this was cut neutral to 90 degrees to the shaft of the femur. The actual tibial jig cuts were seated for a size 3 tibia. This covered the surface of the cortex very accurately. The alignment of the tibial insertion was related to the tibial tubercle. The appropriate jig applied to the tibial surfaces and the appropriate lugholes drilled into the proximal tibia combined with the broaching for the fins of the tibial implant. The tibial implant was a size 3 with an extra strength stubby placed on the distal end for additional fixation. The femoral component was inserted first the initiating drill hole was inserted, the jig settings were 4 degrees of valgus and 3 degrees of external rotation. No fixed flexion deformity noted, and the joint line was kept at 8 mm resection, that is the joint line was maintained. The measurement for the femur was a size 4. After the appropriate jig cuts were made with a [employer] instrumentation system, trialing with a size 4 and a size 11 polyethylene spacer with the size 3 tibial tray brought about easy reduction of the knee into full extension and full range of movement. The only problem was a very attenuated and deficient MCL, the reason for this is unclear, but this is what we found at operation. The patella resurfacing was performed, placing the heel on a bowel to hyperextend the knee and relax the quadriceps mechanism. Two towel clip clamps were placed, one in the quadriceps tendon, the other around the proximal aspect of the patellar ligament. The cuts were made using the oscillating saw from patellar ligament to quadriceps tendon and the appropriate jig holes. The lugholes of the jig system for the patella inserted accordingly. This was in the center of the patellar button, central patella itself. Once this had been performed, the bone bed was thoroughly lavaged with pulse lavage. A round dime-sized bone block was resected off the bone cuts and placed into the distal femoral hole. Cementing was in one stage, tibia, femur, then patella. All extraneous cement was removed. The cement cured, and the size 11 polyethylene with a TS polyethylene inserted for better coronal stability, although this was truly not quite necessary in the light of the fact that the tube of soft tissue around the femur was completely stable in both flexion and extension. The only problem was at 30 degrees of flexion there was an opening of the medial joint line because of the deficient ligament. The ligament itself with sutured with a [place] suture, utilized through the distal tuft of the patella ligament and sutured to the actual tibial eminence. Suture was brought through the bone bed. Wounds were thoroughly lavaged. Range of movement was 0 to 110 degrees, ligament normal. Patellar tracking was normal. Negative thumb test utilized. Drainage: one 8-inch Hemovac was placed to the medial side. The tissues were closed as follows. Fascia 1 Vicryl, subcutaneous 1 and 2-0 Vicryl, skin 3-0 Monocryl with Steri-Strips. Drainage as noted above. No complications. MD MTICH Castro/[id number]
[2019-02-13] MEDS: CEFAZOLIN 1 GM/D5W 1 GRAM/50 ML BAG IVPB SCH (20:13)
--- NOTE | 2019-02-13 20:34 | HP ---
Admitting History and Physical - Admission Chief Complaint: right knee pain History Source: Patient, Family Member Limitations to Obtaining History: No Limitations - Past Medical History Cardiovascular: Yes: CHF, HTN ...: No Psych: Yes: Anxiety, Depression - Past Surgical History Past Surgical History: Yes: Joint Replacement - Smoking History Smoking history: Former smoker Have you smoked in the past 12 months: No If you are a former smoker, when did you quit?: 1980 - Alcohol/Substance Use Hx Alcohol Use: No Home Medications - Allergies Allergies/Adverse Reactions: Allergies Allergy/AdvReac Type Severity Reaction Status Date / Time No Known Drug Allergies Allergy Verified 02/13/19 10:34 - Home Medications Home Medications: Ambulatory Orders Amlodipine Besylate [Norvasc -] 5 mg PO DAILY 10/19/18 Lisinopril 20 mg PO DAILY 10/19/18 Venlafaxine HCl ER [Effexor Xr -] 150 mg PO DAILY 10/19/18 Acetaminophen [Tylenol Extra Strength] 1,000 mg PO Q8H PRN #0 tab 10/26/18 Gabapentin [Neurontin -] 300 mg PO TID capsule 10/26/18 Buspirone HCl [Buspar -] 15 mg PO BID tablet 11/20/18 Lactobacillus Acidophilus [Bacid -] 1 each PO DAILY #30 capsule 11/20/18 Cyclobenzaprine HCl [Flexeril -] 10 mg PO DAILY 02/05/19 Diclofenac Sodium [Voltaren] 100 gm TP DAILY 02/05/19 Docusate Sodium [Colace -] 100 mg PO BID PRN 02/05/19 Furosemide [Lasix] 20 mg PO DAILY PRN 02/05/19 Meloxicam 15 mg PO DAILY 02/05/19 Family Disease History - Family Disease History Family History: Unremarkable Physical Examination Vital Signs: Vital Signs Temperature 97.7 F 02/13/19 15:55 Pulse Rate 57 L 02/13/19 15:55 Respiratory Rate 18 02/13/19 15:55 Blood Pressure 114/55 L 02/13/19 15:55 O2 Sat by Pulse Oximetry (%) 100 02/13/19 15:55 Constitutional: Yes: Well Nourished, Anxious Eyes: Yes: WNL HENT: Yes: WNL Neck: Yes: WNL Cardiovascular: Yes: WNL Respiratory: Yes: WNL Gastrointestinal: Yes: WNL ...Rectal Exam: Yes: Deferred Renal/: Yes: WNL Musculoskeletal: Yes: Joint Stiffness Extremities: Yes: WNL Edema: No Peripheral Pulses WNL: Yes Integumentary: Yes: WNL Wound/Incision: Yes: Clean/Dry, Well Approximated, Dressing Dry and Intact Neurological: Yes: WNL ...Motor Strength: WNL Psychiatric: Yes: WNL Assessment/Plan 63 yo lady with right knee OA, S/P TKR pain management, incentive spirometry -GI, DVT prophylaxis. -PT/OT/OOB as tolerated -major anxiety and depression: cont buspar, effexor XR. -CHF/HTN: on lasix, lisinopril, amlodipine. -oral diet -assessment and plan discussed with pt and family AM labs will f/u in the morning
[2019-02-13] MEDS: busPIRone HCL 5 MG TABLET PO SCH (21:18)
[2019-02-13] MEDS: GABAPENTIN 300 MG CAPSULE (FP) PO SCH (21:18)
[2019-02-13] MEDS: oxyCODONE HCL 10 MG SUSTAINED ACTING TABLET PO SCH (21:18)
[2019-02-13] MEDS: SENNOSIDES/DOCUSATE COMBO (SENNA PLUS) TABLET (UD) PO SCH (21:18)
[2019-02-13] MEDS: ASPIRIN 325 MG TABLET PO SCH (22:18)
[2019-02-14] MEDS: HYDROmorphone HCL CARPU-JECT 1 MG/1 ML DISP.SYRIN IVPB PRN (00:03)
[2019-02-14] MEDS: CEFAZOLIN 1 GM/D5W 1 GRAM/50 ML BAG IVPB SCH (02:50)
[2019-02-14] MEDS: ACETAMINOPHEN 325 MG TABLET (FP) PO SCH ×4 (02:50→21:22)
[2019-02-14] MEDS: oxyCODONE HCL 5 MG TABLET PO PRN ×3 (02:50→23:07)
[2019-02-14] MEDS: GABAPENTIN 300 MG CAPSULE (FP) PO SCH ×4 (06:18→21:24)
[2019-02-14 07:08] LABS: HEMATOCRIT 29.6 % (32.4-45.2); HEMOGLOBIN 9.7 GM/dl (10.7-15.3); MCH 29.6 pg (25.7-33.7); MCHC 32.7 g/dl (32.0-36.0); MEAN CELL VOLUME 90.5 fl (80-96); MEAN PLT VOLUME 10.4 fl (7.5-11.1); PLATELET COUNT 191 K/MM3 (134-434); RBC 3.27 M/mm3 (3.60-5.2); RDW 13.9 % (11.6-15.6); WHITE BLOOD COUNT 9.6 K/mm3 (4.0-10.8)
[2019-02-14 07:15] LABS: CALCIUM 8.3 mg/dl (8.5-10); POTASSIUM 3.7 mmol/L (3.5-5.1)
[2019-02-14] MEDS: SENNOSIDES/DOCUSATE COMBO (SENNA PLUS) TABLET (UD) PO SCH ×2 (09:48→21:22)
[2019-02-14] MEDS: ASPIRIN 325 MG TABLET PO SCH (09:48)
[2019-02-14] MEDS: busPIRone HCL 5 MG TABLET PO SCH ×2 (09:49→21:23)
[2019-02-14] MEDS: VENLAFAXINE HCL 75 MG E.R. CAPSULES (FP) PO SCH (09:49)
[2019-02-14] MEDS: PANTOPRAZOLE 40 MG TABLET (FP) PO SCH (09:50)
[2019-02-14] MEDS: oxyCODONE HCL 10 MG SUSTAINED ACTING TABLET PO SCH ×2 (09:50→21:24)
[2019-02-14] MEDS: LACTOBACILLUS ACIDOPHILUS 1 TABLET PO SCH (09:51)
[2019-02-14] MEDS ORDERED: VENLAFAXINE HCL 150 MG E.R. CAPSULE PO SCH (10:00)
[2019-02-14] MEDS ORDERED: MULTIVITAMINS (DAILY MVI) TABLET (FP) PO SCH (10:00)
[2019-02-14] MEDS ORDERED: LISINOPRIL 20 MG TABLET (FP) PO SCH (10:00)
[2019-02-14] MEDS ORDERED: amLODIPine BESYLATE 5 MG TABLET (FP) PO SCH (10:00)
[2019-02-14] MEDS ORDERED: PATIENT'S OWN MEDICATION (NON-FORMULARY) (Diclofenac Sodium [Voltaren] 100 GM) TP SCH (10:00)
--- NOTE | 2019-02-14 10:00 | PN ---
Progress Note (short form) - Note Progress Note: POD 1, s/p R TKR Pt seen and examined. Reports she is doing "okay" this morning. Did not sleep well last night due to pain issues. Pain has improved with regimen this morning. Has been oob to chair. Voiding without issue. Tolerating PO, no n/v. Denies cp/sob, motor/sensory deficit in R foot. Vital Signs Temp 98.1 F 02/14/19 09:00 Pulse 67 02/14/19 09:00 Resp 18 02/14/19 09:00 BP 99/48 L 02/14/19 09:00 Pulse Ox 100 02/14/19 08:16 Intake & Output 02/13/19 02/13/19 02/14/19 11:59 23:59 11:59 Intake Total 1100 550 Output Total 310 40 Balance 1100 240 -40 Weight 220 lb Intake: IV 1100 150 Oral 400 Output: Drainage 10 40 Right Knee 10 40 Urine 300 Void 300 Other: Voiding Method Bedpan Bedpan Bowel Movement Yes # Bowel Movements 1 Height 5 ft 1 in Body Mass Index (BMI) 41.5 Weight Measurement Method Standing Scale CBC, BMP 02/14/19 06:57 02/14/19 06:57 Gen: awake, alert, nad. Sitting in chair appears comfortable Resp: Unlabored on RA Ext: RLE with dressing d/c/i. Ice packs in place. Thigh and calf soft. EHL/FHL/ DF/PF 5/5 b/l le's. SILT b/l le's. HV in place with scant serosanguinous drainage in reservoir. A/P: 63 y/o F w/ PMHx major anxiety and depression, CHF, HTN, OA, now POD 1 s/p R TKR. HV output 40ml overnight Exam stable - Pain control per anesthesia. Neurontin (300mg-home med) increased to q6hrs -DVT PPx: -Chemical: ASA 81 mg po BID x 6 weeks -Mechanical: CAPRICE's, SCD's -Incentive Spirometry. -PT/OT/Rehab, OOB. -WBAT RLE. -f/u drain output -f/u am labs. -Encourage incentive spirometer -Bowel regimen -Monitor VS per protocol -Care per medical hospitalist team. D/w attending Dr Rea
--- NOTE | 2019-02-14 12:54 | PN ---
Progress Note (short form) - Note Progress Note: 63F POD1 s/p R TKR under spinal anesthetic with peripheral nerve blocks. Pt states that pain is well controlled and does not report any anesthetic complications. AVSS. Continue current regimen.
[2019-02-14] MEDS: LACTATED RINGERS SOLUTION 1,000 ML IV SCH (14:46)
--- NOTE | 2019-02-14 18:32 | PN ---
Progress Note, Physician Chief Complaint: right knee pain - Current Medication List Current Medications: Active Medications Acetaminophen (Tylenol -) 650 mg PO Q6H [facility] Stop: 02/16/19 13:59 Last Admin: 02/14/19 13:33 Dose: 650 mg Al Hydroxide/Mg Hydroxide (Mylanta Oral Suspension -) 30 ml PO Q4H PRN PRN Reason: DYSPEPSIA Aspirin (Asa -) 81 mg PO BID [facility] Last Admin: 02/14/19 09:48 Dose: 81 mg Buspirone HCl (Buspar -) 15 mg PO BID [facility] Last Admin: 02/14/19 09:49 Dose: 15 mg Fentanyl (Sublimaze Injection -) 50 mcg IVPUSH [id number] PRN PRN Reason: PAIN-PACU ORDER X 4 DOSES ONLY Furosemide (Lasix -) 20 mg PO DAILY PRN PRN Reason: EDEMA Gabapentin (Neurontin -) 300 mg PO Q6H [facility] Last Admin: 02/14/19 13:34 Dose: 300 mg Lactated Ringer's (Lactated Ringers Solution) 1,000 mls @ 125 mls/hr IV ASDIR [facility] Last Admin: 02/14/19 14:46 Dose: Not Given Lactobacillus Acidophilus (Bacid -) 1 tab PO DAILY [facility] Last Admin: 02/14/19 09:51 Dose: 1 tab Magnesium Hydroxide (Milk Of Magnesia -) 30 ml PO PRN PRN PRN Reason: CONSTIPATION Non-Formulary Medication (Diclofenac Sodium [Voltaren]) 100 gm TP DAILY [facility] Ondansetron HCl (Zofran Injection) 4 mg IVPUSH Q6H PRN PRN Reason: NAUSEA Oxycodone HCl (Roxicodone -) 5 mg PO Q3H PRN PRN Reason: PAIN LEVEL 1-5 Oxycodone HCl (Roxicodone -) 10 mg PO Q3H PRN PRN Reason: PAIN LEVEL 6-10 Last Admin: 02/14/19 13:33 Dose: 10 mg Oxycodone HCl (Oxycontin -) 10 mg PO BID [facility] Stop: 02/16/19 13:52 Last Admin: 02/14/19 09:50 Dose: 10 mg Pantoprazole Sodium (Protonix -) 40 mg PO DAILY [facility] Last Admin: 02/14/19 09:50 Dose: 40 mg Senna/Docusate Sodium (Pericolace -) 2 tablet PO BID [facility] Last Admin: 02/14/19 09:48 Dose: 2 tablet Venlafaxine HCl (Effexor Xr -) 150 mg PO DAILY [facility] Last Admin: 02/14/19 09:49 Dose: 150 mg - Objective Vital Signs: Vital Signs Temperature 97.8 F 02/14/19 13:30 Pulse Rate 71 02/14/19 13:30 Respiratory Rate 19 02/14/19 13:30 Blood Pressure 99/47 L 02/14/19 13:30 O2 Sat by Pulse Oximetry (%) 96 02/14/19 13:30 Constitutional: Yes: Well Nourished, No Distress Eyes: Yes: WNL HENT: Yes: WNL Neck: Yes: WNL, Rigid Cardiovascular: Yes: WNL Respiratory: Yes: WNL Gastrointestinal: Yes: WNL ...Rectal Exam: Yes: Deferred Genitourinary: Yes: WNL Musculoskeletal: Yes: Joint Stiffness Extremities: Yes: WNL Edema: No Peripheral Pulses WNL: Yes Integumentary: Yes: WNL Wound/Incision: Yes: Clean/Dry, Well Approximated, Dressing Dry and Intact Neurological: Yes: WNL Psychiatric: Yes: WNL Labs: CBC, BMP 02/14/19 06:57 02/14/19 06:57 Assessment/Plan 63 yo lady with right knee OA, S/P TKR POD#1 pain management, incentive spirometry -GI, DVT prophylaxis. -PT/OT/OOB as tolerated -major anxiety and depression: cont buspar, effexor XR. -CHF/HTN: on lasix, holding lisinopril and amlodipine due to hypotension. -oral diet -assessment and plan discussed with pt and family DC home tomorrow if cleared by surgery.
[2019-02-14] MEDS: ASPIRIN 81 MG CHEWABLE TABLETS PO SCH (21:40)
[2019-02-15] MEDS: GABAPENTIN 300 MG CAPSULE (FP) PO SCH ×2 (01:47→08:40)
[2019-02-15] MEDS: ACETAMINOPHEN 325 MG TABLET (FP) PO SCH ×2 (01:47→08:40)
[2019-02-15] MEDS: oxyCODONE HCL 5 MG TABLET PO PRN ×2 (06:04→10:24)
[2019-02-15 07:47] LABS: HEMATOCRIT 28.9 % (32.4-45.2); HEMOGLOBIN 9.4 GM/dl (10.7-15.3); MCH 29.4 pg (25.7-33.7); MCHC 32.5 g/dl (32.0-36.0); MEAN CELL VOLUME 90.4 fl (80-96); MEAN PLT VOLUME 10.6 fl (7.5-11.1); PLATELET COUNT 192 K/MM3 (134-434); RBC 3.19 M/mm3 (3.60-5.2); RDW 14.2 % (11.6-15.6); WHITE BLOOD COUNT 11.4 K/mm3 (4.0-10.8)
--- NOTE | 2019-02-15 08:11 | PN ---
Progress Note (short form) - Note Progress Note: POD #2 Alert. Sitting in chair at bedside. Able to rise up from chair unassisted. PT notes reviewed and doing well. Voiding spontaneously. Tolerating PO diet. Denies n/v/f/c, CP, palpitations, SOB or OWEN. Last Vital Signs Temp Pulse Resp BP Pulse Ox 97.5 F L 73 18 98/51 L 98 02/15/ 05:00 02/15/19 05:00 02/15/19 05:00 02/15/19 05:00 02/15/ 05:00 Gen: alert. nad RLE: Dressing c/d/i. Drain w/ minimal output. GMNVI. Mild swelling. No calf tenderness. Problem List - Problems (1) Status post total right knee replacement Assessment/Plan: POD #2 s/p Right TKR - Pain control. -DVT PPx: -Chemical: ASA 81 mg po BID x 6 weeks -Mechanical: CAPRICE's, SCD's -Incentive Spirometry. -PT/OT/Rehab, OOB. -WBAT RLE. -Drain dc'd on rounds -Dr. Rodriguez to [place] patient home today -Discharge planning: f/u [facility] [place] office. Call for appointment: -BP controlled well Above plan discussed with Dr. Rupert Rea and agrees. Code(s): Z96.651 - PRESENCE OF RIGHT ARTIFICIAL KNEE JOINT (2) HTN (hypertension) Code(s): I10 - ESSENTIAL (PRIMARY) HYPERTENSION (3) Morbid obesity Code(s): E66.01 - MORBID (SEVERE) OBESITY DUE TO EXCESS CALORIES
[2019-02-15 08:12] VITALS: BP 99/54; PULSE 76; TEMP 98
[2019-02-15] MEDS ORDERED: PT OWN MED DRAWER 7, Y5N ONE (10:08)
[2019-02-15] MEDS: LACTOBACILLUS ACIDOPHILUS 1 TABLET PO SCH (10:24)
[2019-02-15] MEDS: PANTOPRAZOLE 40 MG TABLET (FP) PO SCH (10:24)
[2019-02-15] MEDS: ASPIRIN 81 MG CHEWABLE TABLETS PO SCH (10:24)
[2019-02-15] MEDS: busPIRone HCL 5 MG TABLET PO SCH (10:24)
[2019-02-15] MEDS: SENNOSIDES/DOCUSATE COMBO (SENNA PLUS) TABLET (UD) PO SCH (10:26)
[2019-02-15] MEDS: VENLAFAXINE HCL 75 MG E.R. CAPSULES (FP) PO SCH (10:27)
--- NOTE | 2019-02-15 11:24 | DS ---
"Physical Examination Vital Signs: Vital Signs Temperature 98 F 02/15/19 08:05 Pulse Rate 76 02/15/19 08:05 Respiratory Rate 18 02/15/19 08:05 Blood Pressure 99/54 L 02/15/19 08:05 O2 Sat by Pulse Oximetry (%) 99 02/15/19 08:05 Labs: CBC, BMP 02/15/19 06:53 02/14/19 06:57 Discharge Summary Reason For Visit: UNILATERAL OSTEOARTHRITIS RIGHT KNEE Current Active Problems Status post total right knee replacement (Acute) Hospital Course: 3 yo lady with right knee OA, S/P TKR POD#2 pain management, incentive spirometry -GI, DVT prophylaxis. -PT/OT/OOB as tolerated -major anxiety and depression: cont buspar, effexor XR. -CHF/HTN: on lasix, holding lisinopril and amlodipine due to hypotension. -oral diet Condition: Stable - Instructions Diet, Activity, Other Instructions: Dr. Rea Discharge Instructions for Knee Replacement Post Operative Instructions Physical activity Physical Therapist will come to your home for the first 5 days. You will be set up with outpatient PT at your first post-operative visit. Use assistive devices for ambulation at all times. Weight bearing as tolerated on your surgical side. Do not put pillow under knee. May put pillow under heel. Wound care Leave your surgical dressing in place. Do not change the dressing until seen by your surgeon in the office. No baths or showers. Do not submerge your incision. Do not apply any ointments or lotions to your incision. Please call the office if your dressing is soiled/dirty or is falling off. Apply Graduated Compression Stockings (TEDS) to both lower extremities - remove daily for hygiene ONLY. Diet There are no dietary restrictions. Eat healthy, high-fiber foods. Drink 6 to 8 glasses of liquid each day. This will assist in keeping your bowels are regular. Pain management Any pain prescription medication ordered should be taken as prescribed for moderate to severe pain. Do not take additional Tylenol while taking Percocet. Take Aspirin 81 mg two times a day for a total of 6 weeks to prevent blood clots. Call Dr. Rea for any of the following: Severe pain not relieved by medication Fever of 101 or higher Excessive bleeding or drainage on dressing Inability to urinate If you experience chest pain or shortness of breath, please seek emergency care immediately. Please call the office at to confirm your post-op appointment for the week following surgery. [facility] ADMINISTRATOR This report was requested by: Gabino Alba | Reference #: [id number] 01/25/2019 Oxycodone-acetaminophen 10-325 mg / 120 tabs / Barbi Guidry PA-C Disposition: HOME - Home Medications Comprehensive Discharge Medication List: Ambulatory Orders Amlodipine Besylate [Norvasc -] 5 mg PO DAILY 10/19/18 Lisinopril 20 mg PO DAILY 10/19/18 Venlafaxine HCl ER [Effexor Xr -] 150 mg PO DAILY 10/19/18 Acetaminophen [Tylenol Extra Strength] 1,000 mg PO Q8H PRN #0 tab 10/26/18 Gabapentin [Neurontin -] 300 mg PO TID capsule 10/26/18 Buspirone HCl [Buspar -] 15 mg PO BID tablet 11/20/18 Lactobacillus Acidophilus [Bacid -] 1 each PO DAILY #30 capsule 11/20/18 Cyclobenzaprine HCl [Flexeril -] 10 mg PO DAILY 02/05/19 Diclofenac Sodium [Voltaren] 100 gm TP DAILY 02/05/19 Docusate Sodium [Colace -] 100 mg PO BID PRN 02/05/19 Furosemide [Lasix] 20 mg PO DAILY PRN 02/05/19 Meloxicam 15 mg PO DAILY 02/05/19"
--- NOTE | 2019-02-15 17:52 | PATH ---
Surgical Pathology Report Patient Name: ALLISON ANGUIANO Med. Rec. #: [id number] /Age/Gender: 1955 (Age: 63) / F Account: [id number] Location: [facility] Taken: 02/13/2019 Received: 02/13/2019 Reported: 02/15/2019 Physicians: Rodolfo Rea M.D. Specimen(s) Received BONES RIGHT KNEE Clinical History Right knee osteoarthritis Final Diagnosis BONES, KNEE, RIGHT, TOTAL KNEE REPLACEMENT: BONE WITH DEGENERATIVE JOINT DISEASE AND DENSE FIBROCONNECTIVE TISSUE. Electronically Signed Dasha Orourke M.D. Gross Description Received in formalin labeled "bones right knee" is a 9 x 9 x 4 cm aggregate of multiple portions of bone and soft tissue. The tibial plateau measures 7 x 4 x 1.5 cm. There are focal areas of eburnation identified. The articular surface is dee-yellow and diffusely granular. The underlying trabecular bone is yellow and hard. [employer] Content Specialist sections submitted in one cassette, following decalcification. MARSHALL/02/14/2019 marleny/02/14/2019
== END 2019-02-15 13:40 | disposition home or self-care (01) | DRG 470 ==
LOC: FM/S 10:09
PROVIDERS: ADMIT Orthopaedic Surgery Orthopaedic Surgery of the Spine; ATTEND Internal Medicine
PROC: 0SRC0J9 Replacement of Right Knee Joint with Synthetic Substitute, Cemented, Open Approach (ICD-10-PCS; principal; 2019-02-13 12:49)
DX: M17.11 Unilateral primary osteoarthritis, right knee (principal); Z68.41 Body mass index [BMI] 40.0-44.9, adult; I11.0 Hypertensive heart disease with heart failure; I50.9 Heart failure, unspecified; F41.8 Other specified anxiety disorders; E66.01 Morbid (severe) obesity due to excess calories; Z87.891 Personal history of nicotine dependence
CPT/HCPCS: 36415; 73560-TC-RT-FY; 80048; 85027; 88305-TC; 88311-TC; 94760; 97116-GP; 97163-GP; J0131